=== PATIENT | female | born 1965 | race African-American/Black ===

== ENCOUNTER 2018-12-08 01:40 | Inpatient (IN) | payer MEDICAID ==
[2018-12-08] VITALS (46 sets, daily range): BP systolic 64–182; BP diastolic 34–96
[~2018-12-08] VITALS: Ht 160 cm; Wt 86.6 kg
[2018-12-08] MEDS ORDERED: SODIUM CHLORIDE 0.9% 1,000 ML IV ONE (03:09)
[2018-12-08] MEDS ORDERED: ONDANSETRON HCL 4MG/2ML INJ IV STA (03:09)
[2018-12-08] MEDS ORDERED: LORAZEPAM 2MG/ML CPJ IV ONE (03:15)
[2018-12-08 04:08] LABS: CHLORIDE 107 mEq/L (98-107)
[2018-12-08 04:12] LABS: ETHANOL BLOOD < 10 mg/dL; HEMATOCRIT. 30.6 % (36.0-48.0); MEAN CORPUSCULAR HEMOGLOBIN 29.2 pg (28.0-32.0); MEAN CORPUSCULAR VOLUME 89.5 fL (81.0-99.0); MEAN PLATELET VOLUME 11.1 fl (7.4-10.4); PLATELET 80 x1000/uL (130-400); RED BLOOD CELL COUNT 3.42 mill/uL (4.2-5.4); RED CELL DISTRIBUTION WIDTH 16.7 % (11.6-14.6)
[2018-12-08 04:17] LABS: CREATINE KINASE 108 IU/L (26-192); INR 1.9; PROTHROMBIN TIME 18.6 sec (9.1-11.1)
[2018-12-08 05:18] LABS: CLARITY URINE CLOUDY (CLEAR); COLOR URINE DARK YELLOW (YELLOW); KETONES URINE NEGATIVE (NEGATIVE); LEUKOCYTE ESTERASE URINE 2+ (NEGATIVE); NITRITE URINE NEGATIVE (NEGATIVE); OCCULT BLOOD URINE 2+ (NEGATIVE); PROTEIN URINE 1+ (NEGATIVE); SPECIFIC GRAVITY URINE 1.018 (1.005-1.030)
[2018-12-08 05:49] LABS: BG BASE EXCESS -3.2 mmol/L (-2.0-2.0); BG CARBOXYHEMOGLOBIN 0.7 % (0.5-1.5); BG DEOXYHEMOGLOBIN 15.3 % (0.0-5.0); BG FRACTION INSPIRED OXYGEN 21; BG HCO3 ACT 23.4 mmol/L (22.0-26.0); BG METHEMOGLOBIN 0.3 % (0.0-1.5); BG OXYGEN SATURATION 84.5 % (92.0-98.5); BG OXYHEMOGLOBIN 83.7 % (94.0-97.0); BG PCO2 48.7 mmHg (35.0-45.0); BG PH 7.299 (7.350-7.450); BG PO2 58.1 mmHg (75.0-100.0); BG SAMPLE SITE RIGHT RADIAL; BG TOTAL HEMOGLOBIN 11.3 g/dL (12.0-18.0); BG VENT MODE ROOM AIR
[2018-12-08] MEDS ORDERED: CEFTRIAXONE 1 G PREMIX 50 ML IV SCH (05:59)
[2018-12-08 06:10] LABS: *BARBITURATES SCREEN URINE NEGATIVE (NEGATIVE); *BENZODIAZEPINES SCREEN URINE NEGATIVE (NEGATIVE); *COCAINE SCREEN URINE NEGATIVE (NEGATIVE); CANNABINOID URINE SCREEN NEGATIVE (NEGATIVE); METHADONE URINE SCREEN NEGATIVE (NEGATIVE); OPIATES URINE SCREEN NEGATIVE (NEGATIVE)
[2018-12-08 06:11] LABS: *AMPHETAMINES SCREEN URINE NEGATIVE (NEGATIVE); PHENCYCLIDINE URINE SCREEN NEGATIVE (NEGATIVE)
[2018-12-08 07:09] LABS: PLATELET ESTIMATE DECREASED
[2018-12-08] MEDS ORDERED: SUCCINYLCHOLINE CHLORIDE 200MG/10ML IV ONE (10:30)
[2018-12-08] MEDS ORDERED: ETOMIDATE 2MG/ML 10ML VIAL IV ONE ×2 (10:30→14:05)
[2018-12-08] MEDS ORDERED: IPRATROPIUM/ALBUTEROL 0.5-3(2.5)MG/3ML NEB HHN PRN (10:30)
[2018-12-08] MEDS ORDERED: PROPOFOL 10MG/ML 100ML 100 ML IV ONE (11:00)
[2018-12-08 11:21] LABS: BG CARBOXYHEMOGLOBIN 0.6 % (0.5-1.5); BG DEOXYHEMOGLOBIN 0.5 % (0.0-5.0); BG FRACTION INSPIRED OXYGEN 80; BG HCO3 ACT 24.4 mmol/L (22.0-26.0); BG METHEMOGLOBIN 0.3 % (0.0-1.5); BG OXYGEN SATURATION 99.5 % (92.0-98.5); BG OXYHEMOGLOBIN 98.6 % (94.0-97.0); BG PCO2 48.5 mmHg (35.0-45.0); BG PH 7.319 (7.350-7.450); BG PO2 205.3 mmHg (75.0-100.0); BG SAMPLE SITE RIGHT RADIAL; BG TIDAL VOLUME(mL) 500 mL; BG VENT MODE VENT - A/C; BG VENT RATE 16 set
[2018-12-08] MEDS: IPRATROPIUM/ALBUTEROL 0.5-3(2.5)MG/3ML NEB HHN SCH ×3 (12:00→20:19)
[2018-12-08 13:04] LABS: FOLIC ACID (FOLATE) SERUM > 20.00 ng/mL (>5.38); VITAMIN B12 SERUM > 2000.0 pg/mL (211-911)
[2018-12-08] MEDS ORDERED: CEFEPIME 1,000 MG in DEXTROSE 5% WATER 50 ML IV SCH (14:00)
[2018-12-08] MEDS: METRONIDAZOLE 500 MG PREMIX 100 ML IV SCH ×3 (14:00→16:03)
[2018-12-08 14:07] LABS: FERRITIN 1090 ng/mL (10-291)
[2018-12-08 14:18] LABS: HEPATITIS B SURFACE ANTIGEN NEGATIVE
[2018-12-08] MEDS: PANTOPRAZOLE SODIUM 40 MG/VIAL IV SCH (14:25)
[2018-12-08] MEDS: PROPOFOL 10MG/ML 100ML 100 ML IV PRN ×2 (14:26→23:31)
[2018-12-08 14:48] LABS: HEPATITIS A AB IGM NEGATIVE (NEGATIVE)
[2018-12-08] MEDS ORDERED: SODIUM CHLORIDE 0.9% 250 ML IV NR (15:45)
[2018-12-08] MEDS ORDERED: DEXTROSE 5% WATER 1,000 ML IV SCH (16:00)
[2018-12-08] MEDS ORDERED: VANCOMYCIN 2,000 MG in DEXT 5% WATER 500 ML IV SCH (18:00)
[2018-12-08] MEDS ORDERED: INFLUENZA VIRUS VACCINE(AFLURIA) 0.5ML SYR IM ONE (18:15)
[2018-12-08] MEDS ORDERED: PNEUMOCOCCAL 23-VAL P-SAC VAC 0.5 ML IM ONE (18:15)
[2018-12-08] MEDS: THIAMINE HCL 100MG TABLET PO SCH (18:44)
[2018-12-08] MEDS: FOLIC ACID/VITAMIN B COMP W-C TABLET PO SCH (18:45)
[2018-12-08] MEDS: NOREPINEPHRINE 4 MG in DEXT 5% WATER 246 ML IV PRN (19:43)
[2018-12-09] VITALS (83 sets, daily range): BP systolic 74–140; BP diastolic 40–78
[2018-12-09] MEDS: IPRATROPIUM/ALBUTEROL 0.5-3(2.5)MG/3ML NEB HHN SCH ×6 (00:45→20:33)
[2018-12-09] MEDS: METRONIDAZOLE 500 MG PREMIX 100 ML IV SCH ×3 (05:08→21:57)
[2018-12-09] MEDS: NOREPINEPHRINE 4 MG in DEXT 5% WATER 246 ML IV PRN (06:32)
[2018-12-09 07:04] LABS: HEMATOCRIT. 27.3 % (36.0-48.0); MEAN CORPUSCULAR HEMOGLOBIN 29.6 pg (28.0-32.0); MEAN CORPUSCULAR VOLUME 89.2 fL (81.0-99.0); MEAN PLATELET VOLUME 10.7 fl (7.4-10.4); PLATELET 73 x1000/uL (130-400); RED BLOOD CELL COUNT 3.06 mill/uL (4.2-5.4); RED CELL DISTRIBUTION WIDTH 16.9 % (11.6-14.6)
[2018-12-09] MEDS ORDERED: CEFEPIME 2,000 MG in DEXT 5% WATER 100 ML IV SCH (08:00)
[2018-12-09 08:38] LABS: NUCLEATED RED BLOOD CELLS 1 /100 WBC
[2018-12-09 08:39] LABS: PLATELET ESTIMATE DECREASED
[2018-12-09 09:00] LABS: BG BASE EXCESS -2.3 mmol/L (-2.0-2.0); BG CARBOXYHEMOGLOBIN 0.1 % (0.5-1.5); BG DEOXYHEMOGLOBIN 0.9 % (0.0-5.0); BG FRACTION INSPIRED OXYGEN 50; BG HCO3 ACT 22.6 mmol/L (22.0-26.0); BG METHEMOGLOBIN 0.3 % (0.0-1.5); BG OXYGEN SATURATION 99.1 % (92.0-98.5); BG OXYHEMOGLOBIN 98.7 % (94.0-97.0); BG PCO2 39.2 mmHg (35.0-45.0); BG PH 7.379 (7.350-7.450); BG PO2 147.7 mmHg (75.0-100.0); BG SAMPLE SITE RIGHT RADIAL; BG TIDAL VOLUME(mL) 500 mL; BG TOTAL HEMOGLOBIN 9.5 g/dL (12.0-18.0); BG VENT MODE VENT - A/C; BG VENT RATE 16 set
[2018-12-09] MEDS: PANTOPRAZOLE SODIUM 40 MG/VIAL IV SCH (11:33)
[2018-12-09] MEDS: THIAMINE HCL 100MG TABLET PO SCH (11:34)
[2018-12-09] MEDS: FOLIC ACID/VITAMIN B COMP W-C TABLET PO SCH (11:34)
[2018-12-09] MEDS: DEXT 5%/0.45% NACL 1000ML 1,000 ML IV SCH (11:48)
[2018-12-09] MEDS ORDERED: VANCOMYCIN 1 G PREMIX 200 ML IV SCH ×2 (12:00)
[2018-12-09] MEDS: PROPOFOL 10MG/ML 100ML 100 ML IV PRN ×3 (12:18→21:54)
[2018-12-09] MEDS: MIDODRINE HCL 5MG TABLET PO SCH ×2 (13:42→17:54)
[2018-12-10] VITALS (32 sets, daily range): BP systolic 87–141; BP diastolic 44–103
[2018-12-10] MEDS: IPRATROPIUM/ALBUTEROL 0.5-3(2.5)MG/3ML NEB HHN SCH ×6 (00:12→20:22)
[2018-12-10] MEDS: METRONIDAZOLE 500 MG PREMIX 100 ML IV SCH ×2 (06:00→16:02)
[2018-12-10] MEDS: PROPOFOL 10MG/ML 100ML 100 ML IV PRN (06:47)
[2018-12-10] MEDS: DEXT 5%/0.45% NACL 1000ML 1,000 ML IV SCH ×2 (06:50→21:47)
[2018-12-10 06:51] LABS: BASOPHILS % 1.2 % (0.0-2.0); EOSINOPHILS % 1.6 % (0.0-5.0); HEMATOCRIT. 27.9 % (36.0-48.0); HEMOGLOBIN. 9.2 g/dL (12.0-16.0); MEAN CORPUSCULAR HEMOGLOBIN 29.2 pg (28.0-32.0); MEAN CORPUSCULAR VOLUME 88.6 fL (81.0-99.0); MEAN PLATELET VOLUME 10.6 fl (7.4-10.4); MONOCYTES % 6.7 % (2.0-8.0); NEUTROPHILS % 75.5 % (40.0-76.0); PLATELET 75 x1000/uL (130-400); RED BLOOD CELL COUNT 3.15 mill/uL (4.2-5.4); RED CELL DISTRIBUTION WIDTH 16.6 % (11.6-14.6)
[2018-12-10 06:59] LABS: CHLORIDE 106 mEq/L (98-107)
[2018-12-10 08:22] LABS: BG BASE EXCESS -2.1 mmol/L (-2.0-2.0); BG CARBOXYHEMOGLOBIN 0.5 % (0.5-1.5); BG DEOXYHEMOGLOBIN 2.2 % (0.0-5.0); BG FRACTION INSPIRED OXYGEN 50; BG HCO3 ACT 21.8 mmol/L (22.0-26.0); BG METHEMOGLOBIN 0.4 % (0.0-1.5); BG OXYGEN SATURATION 97.8 % (92.0-98.5); BG OXYHEMOGLOBIN 96.9 % (94.0-97.0); BG PCO2 33.9 mmHg (35.0-45.0); BG PH 7.426 (7.350-7.450); BG PO2 103.7 mmHg (75.0-100.0); BG SAMPLE SITE RIGHT BRACHIAL; BG TIDAL VOLUME(mL) 500 mL; BG TOTAL HEMOGLOBIN 9.2 g/dL (12.0-18.0); BG VENT MODE VENT - A/C; BG VENT RATE 16 set
[2018-12-10] MEDS: FOLIC ACID/VITAMIN B COMP W-C TABLET PO SCH (09:00)
[2018-12-10] MEDS: PANTOPRAZOLE SODIUM 40 MG/VIAL IV SCH (09:42)
[2018-12-10] MEDS: MIDODRINE HCL 5MG TABLET PO SCH ×3 (09:43→16:30)
[2018-12-10] MEDS: THIAMINE HCL 100MG TABLET PO SCH (09:43)
[2018-12-10] MEDS: CEFEPIME 2,000 MG in DEXT 5% WATER 100 ML IV SCH (09:50)
[2018-12-10] MEDS: PROPOFOL 10MG/ML 100ML 100 ML IV SCH (22:04)
[2018-12-11] VITALS (50 sets, daily range): BP systolic 76–125; BP diastolic 45–66
[2018-12-11] MEDS: IPRATROPIUM/ALBUTEROL 0.5-3(2.5)MG/3ML NEB HHN SCH ×6 (00:21→20:09)
[2018-12-11 05:58] LABS: BASOPHILS % 0.4 % (0.0-2.0); EOSINOPHILS % 0.3 % (0.0-5.0); HEMATOCRIT. 28.8 % (36.0-48.0); HEMOGLOBIN. 9.7 g/dL (12.0-16.0); LYMPHOCYTES % 15.2 % (20.0-50.0); MEAN CORPUSCULAR HEMOGLOBIN 29.7 pg (28.0-32.0); MEAN PLATELET VOLUME 11.1 fl (7.4-10.4); MONOCYTES % 3.2 % (2.0-8.0); NEUTROPHILS % 80.9 % (40.0-76.0); PLATELET 77 x1000/uL (130-400); RED BLOOD CELL COUNT 3.27 mill/uL (4.2-5.4); RED CELL DISTRIBUTION WIDTH 16.8 % (11.6-14.6)
[2018-12-11 06:08] LABS: INR 2.2; PARTIAL THROMBOPLASTIN TIME 41.3 sec (23.4-31.0); PROTHROMBIN TIME 21.9 sec (9.1-11.1)
[2018-12-11] MEDS: PROPOFOL 10MG/ML 100ML 100 ML IV SCH (06:42)
[2018-12-11] MEDS: METRONIDAZOLE 500 MG PREMIX 100 ML IV SCH ×4 (07:23→22:16)
[2018-12-11] MEDS: FOLIC ACID/VITAMIN B COMP W-C TABLET PO SCH (09:00)
[2018-12-11] MEDS: CEFEPIME 2,000 MG in DEXT 5% WATER 100 ML IV SCH (09:00)
[2018-12-11] MEDS: THIAMINE HCL 100MG TABLET PO SCH (09:00)
[2018-12-11] MEDS: MIDODRINE HCL 5MG TABLET PO SCH ×3 (09:00→17:00)
[2018-12-11 09:36] LABS: BG BASE EXCESS -4.3 mmol/L (-2.0-2.0); BG CARBOXYHEMOGLOBIN 0.3 % (0.5-1.5); BG DEOXYHEMOGLOBIN 8.8 % (0.0-5.0); BG FRACTION INSPIRED OXYGEN 50; BG HCO3 ACT 21.3 mmol/L (22.0-26.0); BG METHEMOGLOBIN 0.4 % (0.0-1.5); BG OXYGEN SATURATION 91.1 % (92.0-98.5); BG OXYHEMOGLOBIN 90.5 % (94.0-97.0); BG PCO2 41.2 mmHg (35.0-45.0); BG PH 7.331 (7.350-7.450); BG PO2 69.4 mmHg (75.0-100.0); BG PRESSURE SUPPORT 12; BG SAMPLE SITE RIGHT RADIAL; BG TIDAL VOLUME(mL) 500 mL; BG TOTAL HEMOGLOBIN 10.6 g/dL (12.0-18.0); BG VENT MODE VENT - SIMV; BG VENT RATE 10 set
[2018-12-11] MEDS: PANTOPRAZOLE SODIUM 40 MG/VIAL IV SCH (10:07)
[2018-12-11] MEDS ORDERED: FUROSEMIDE 40MG/4ML VIAL IVP NR (10:15)
[2018-12-11 13:06] LABS: HIV SCREEN 4G Non Reactive (Non Reactive)
[2018-12-11] MEDS: CEFTRIAXONE 2 G in DEXTROSE 5% WATER 50 ML IV SCH (18:27)
[2018-12-11] MEDS: PROPOFOL 10MG/ML 100ML 100 ML IV PRN (18:29)
[2018-12-11] MEDS: DEXT 5%/0.45% NACL 1000ML 1,000 ML IV SCH (22:16)
[2018-12-12] VITALS (89 sets, daily range): BP systolic 83–124; BP diastolic 44–70
[2018-12-12] MEDS: IPRATROPIUM/ALBUTEROL 0.5-3(2.5)MG/3ML NEB HHN SCH ×6 (00:31→21:03)
[2018-12-12] MEDS: NOREPINEPHRINE 4 MG in DEXT 5% WATER 246 ML IV PRN (01:06)
[2018-12-12] MEDS: METRONIDAZOLE 500 MG PREMIX 100 ML IV SCH ×4 (05:53→21:53)
[2018-12-12] MEDS: PROPOFOL 10MG/ML 100ML 100 ML IV PRN (05:56)
[2018-12-12 06:33] LABS: BASOPHILS % 0.6 % (0.0-2.0); EOSINOPHILS % 0.8 % (0.0-5.0); HEMATOCRIT. 29.3 % (36.0-48.0); HEMOGLOBIN. 9.5 g/dL (12.0-16.0); LYMPHOCYTES % 12.2 % (20.0-50.0); MEAN CORPUSCULAR VOLUME 89.3 fL (81.0-99.0); MEAN PLATELET VOLUME 10.8 fl (7.4-10.4); MONOCYTES % 3.9 % (2.0-8.0); NEUTROPHILS % 82.5 % (40.0-76.0); PLATELET 78 x1000/uL (130-400); RED BLOOD CELL COUNT 3.28 mill/uL (4.2-5.4); RED CELL DISTRIBUTION WIDTH 16.3 % (11.6-14.6)
[2018-12-12 08:18] LABS: BG BASE EXCESS -3.5 mmol/L (-2.0-2.0); BG CARBOXYHEMOGLOBIN 0.2 % (0.5-1.5); BG DEOXYHEMOGLOBIN 4.1 % (0.0-5.0); BG FRACTION INSPIRED OXYGEN 50; BG HCO3 ACT 21.1 mmol/L (22.0-26.0); BG METHEMOGLOBIN 0.2 % (0.0-1.5); BG OXYGEN SATURATION 95.9 % (92.0-98.5); BG OXYHEMOGLOBIN 95.5 % (94.0-97.0); BG PCO2 36.1 mmHg (35.0-45.0); BG PH 7.384 (7.350-7.450); BG PO2 89.5 mmHg (75.0-100.0); BG SAMPLE SITE RIGHT BRACHIAL; BG TIDAL VOLUME(mL) 500 mL; BG TOTAL HEMOGLOBIN 9.7 g/dL (12.0-18.0); BG VENT MODE VENT - A/C; BG VENT RATE 14 set
[2018-12-12] MEDS: FOLIC ACID/VITAMIN B COMP W-C TABLET PO SCH (08:33)
[2018-12-12] MEDS: THIAMINE HCL 100MG TABLET PO SCH (08:34)
[2018-12-12] MEDS: MIDODRINE HCL 5MG TABLET PO SCH ×3 (08:34→15:58)
[2018-12-12] MEDS ORDERED: PROPOFOL 10MG/ML 100ML 100 ML IV PRN (09:15)
[2018-12-12] MEDS: PANTOPRAZOLE SODIUM 40 MG/VIAL IV SCH (09:19)
[2018-12-12] MEDS: CEFTRIAXONE 2 G in DEXTROSE 5% WATER 50 ML IV SCH (17:27)
[2018-12-12] MEDS: ACETAMINOPHEN 325MG TABLET PO PRN (21:54)
[2018-12-13] VITALS (56 sets, daily range): BP systolic 86–139; BP diastolic 42–76
[2018-12-13] MEDS: IPRATROPIUM/ALBUTEROL 0.5-3(2.5)MG/3ML NEB HHN SCH ×6 (00:19→20:35)
[2018-12-13] MEDS: METRONIDAZOLE 500 MG PREMIX 100 ML IV SCH ×2 (05:15→17:02)
[2018-12-13 06:18] LABS: BASOPHILS % 0.6 % (0.0-2.0); EOSINOPHILS % 1.6 % (0.0-5.0); HEMATOCRIT. 26.9 % (36.0-48.0); LYMPHOCYTES % 11.4 % (20.0-50.0); MEAN CORPUSCULAR HEMOGLOBIN 29.7 pg (28.0-32.0); MEAN CORPUSCULAR VOLUME 88.5 fL (81.0-99.0); MEAN PLATELET VOLUME 10.9 fl (7.4-10.4); MONOCYTES % 4.9 % (2.0-8.0); NEUTROPHILS % 81.5 % (40.0-76.0); PLATELET 69 x1000/uL (130-400); RED BLOOD CELL COUNT 3.04 mill/uL (4.2-5.4); RED CELL DISTRIBUTION WIDTH 16.2 % (11.6-14.6)
[2018-12-13 06:37] LABS: PHOSPHORUS 7.9 mg/dL (2.5-4.9)
[2018-12-13] MEDS: DEXT 5%/0.45% NACL 1000ML 1,000 ML IV SCH (08:08)
[2018-12-13] MEDS: PANTOPRAZOLE SODIUM 40 MG/VIAL IV SCH (08:08)
[2018-12-13] MEDS: THIAMINE HCL 100MG TABLET PO SCH (08:08)
[2018-12-13] MEDS: FOLIC ACID/VITAMIN B COMP W-C TABLET PO SCH (08:08)
[2018-12-13] MEDS: MIDODRINE HCL 5MG TABLET PO SCH ×3 (08:09→17:01)
[2018-12-13 08:41] LABS: BG BASE EXCESS -5.4 mmol/L (-2.0-2.0); BG CARBOXYHEMOGLOBIN 0.1 % (0.5-1.5); BG DEOXYHEMOGLOBIN 3.3 % (0.0-5.0); BG FRACTION INSPIRED OXYGEN 50; BG HCO3 ACT 19.4 mmol/L (22.0-26.0); BG METHEMOGLOBIN 0.3 % (0.0-1.5); BG OXYGEN SATURATION 96.7 % (92.0-98.5); BG OXYHEMOGLOBIN 96.3 % (94.0-97.0); BG PCO2 35.3 mmHg (35.0-45.0); BG PH 7.359 (7.350-7.450); BG PO2 98.7 mmHg (75.0-100.0); BG SAMPLE SITE LEFT BRACHIAL; BG TIDAL VOLUME(mL) 500 mL; BG TOTAL HEMOGLOBIN 9.3 g/dL (12.0-18.0); BG VENT MODE VENT - A/C; BG VENT RATE 14 set
[2018-12-13] MEDS ORDERED: FUROSEMIDE 40MG/4ML VIAL IVP SCH (08:45)
[2018-12-13] MEDS ORDERED: LORAZEPAM 2MG/ML CPJ IV PRN (10:15)
[2018-12-13] MEDS ORDERED: FENTANYL CITRATE/PF 50MCG/ML 2ML VIAL IV PRN (10:15)
[2018-12-13] MEDS ORDERED: LACTULOSE 20G/30ML UDC PO SCH (11:15)
[2018-12-13] MEDS ORDERED: BISACODYL 5MG TABLET PO PRN (11:15)
[2018-12-13] MEDS: DOCUSATE SODIUM SUGAR FREE 100MG/10ML UDC NG SCH ×2 (11:58→17:01)
[2018-12-13 13:03] LABS: INR 2.5; PARTIAL THROMBOPLASTIN TIME 42.3 sec (23.4-31.0); PROTHROMBIN TIME 24.6 sec (9.1-11.1)
[2018-12-13] MEDS: CEFTRIAXONE 2 G in DEXTROSE 5% WATER 50 ML IV SCH (17:02)
[2018-12-14] VITALS (67 sets, daily range): BP systolic 90–134; BP diastolic 44–70
[2018-12-14] MEDS: IPRATROPIUM/ALBUTEROL 0.5-3(2.5)MG/3ML NEB HHN SCH ×6 (00:26→20:10)
[2018-12-14] MEDS: METRONIDAZOLE 500 MG PREMIX 100 ML IV SCH ×2 (05:01→18:17)
[2018-12-14 06:15] LABS: BASOPHILS % 0.7 % (0.0-2.0); EOSINOPHILS % 2.1 % (0.0-5.0); HEMATOCRIT. 28.5 % (36.0-48.0); HEMOGLOBIN. 9.4 g/dL (12.0-16.0); LYMPHOCYTES % 10.2 % (20.0-50.0); MEAN CORPUSCULAR HEMOGLOBIN 29.5 pg (28.0-32.0); MEAN CORPUSCULAR VOLUME 89.1 fL (81.0-99.0); MEAN PLATELET VOLUME 10.2 fl (7.4-10.4); MONOCYTES % 4.9 % (2.0-8.0); NEUTROPHILS % 82.1 % (40.0-76.0); PLATELET 66 x1000/uL (130-400); RED BLOOD CELL COUNT 3.19 mill/uL (4.2-5.4); RED CELL DISTRIBUTION WIDTH 16.1 % (11.6-14.6)
[2018-12-14 06:29] LABS: PHOSPHORUS 5.8 mg/dL (2.5-4.9)
[2018-12-14 08:53] LABS: BG BASE EXCESS -3.8 mmol/L (-2.0-2.0); BG CARBOXYHEMOGLOBIN 0.7 % (0.5-1.5); BG DEOXYHEMOGLOBIN 3.1 % (0.0-5.0); BG FRACTION INSPIRED OXYGEN 50; BG HCO3 ACT 21.3 mmol/L (22.0-26.0); BG METHEMOGLOBIN 0.3 % (0.0-1.5); BG OXYGEN SATURATION 96.9 % (92.0-98.5); BG OXYHEMOGLOBIN 95.9 % (94.0-97.0); BG PCO2 38.7 mmHg (35.0-45.0); BG PH 7.359 (7.350-7.450); BG PO2 100.4 mmHg (75.0-100.0); BG SAMPLE SITE RIGHT RADIAL; BG TIDAL VOLUME(mL) 500 mL; BG VENT MODE VENT - A/C; BG VENT RATE 14 set
[2018-12-14] MEDS: THIAMINE HCL 100MG TABLET PO SCH (09:00)
[2018-12-14] MEDS: DOCUSATE SODIUM SUGAR FREE 100MG/10ML UDC NG SCH ×2 (09:00→17:00)
[2018-12-14] MEDS: FOLIC ACID/VITAMIN B COMP W-C TABLET PO SCH (09:00)
[2018-12-14] MEDS: MIDODRINE HCL 5MG TABLET PO SCH ×3 (09:00→17:00)
[2018-12-14] MEDS: PANTOPRAZOLE SODIUM 40 MG/VIAL IV SCH (10:59)
[2018-12-14] MEDS: DEXT 5%/0.45% NACL 1000ML 1,000 ML IV SCH (12:08)
[2018-12-14] MEDS ORDERED: DIATR MEGLU/DIATRIZOATE SOLN 30ML PO NR ×2 (13:00→15:29)
[2018-12-14] MEDS: CEFTRIAXONE 2 G in DEXTROSE 5% WATER 50 ML IV SCH (18:18)
[2018-12-14] MEDS ORDERED: NA PHOS,M-B/NA PHOS,DI-BA ENEMA 118ML PR PRN (22:45)
[2018-12-14] MEDS: LACTULOSE 20G/30ML UDC PO PRN (22:54)
[2018-12-15] VITALS (32 sets, daily range): BP systolic 87–128; BP diastolic 40–65
[2018-12-15] MEDS: IPRATROPIUM/ALBUTEROL 0.5-3(2.5)MG/3ML NEB HHN SCH ×6 (00:12→20:29)
[2018-12-15] MEDS: METRONIDAZOLE 500 MG PREMIX 100 ML IV SCH ×2 (05:19→18:56)
[2018-12-15 07:45] LABS: BASOPHILS % 1.1 % (0.0-2.0); EOSINOPHILS % 1.9 % (0.0-5.0); HEMATOCRIT. 27.7 % (36.0-48.0); LYMPHOCYTES % 8.5 % (20.0-50.0); MEAN CORPUSCULAR HEMOGLOBIN 29.2 pg (28.0-32.0); MEAN CORPUSCULAR VOLUME 90.2 fL (81.0-99.0); MEAN PLATELET VOLUME 9.6 fl (7.4-10.4); MONOCYTES % 3.3 % (2.0-8.0); NEUTROPHILS % 85.2 % (40.0-76.0); PLATELET 74 x1000/uL (130-400); RED BLOOD CELL COUNT 3.07 mill/uL (4.2-5.4); RED CELL DISTRIBUTION WIDTH 16.3 % (11.6-14.6)
[2018-12-15] MEDS: DEXT 5%/0.45% NACL 1000ML 1,000 ML IV SCH ×2 (08:11→22:30)
[2018-12-15 08:51] LABS: BG BASE EXCESS -1.8 mmol/L (-2.0-2.0); BG CARBOXYHEMOGLOBIN 0.8 % (0.5-1.5); BG DEOXYHEMOGLOBIN 1.8 % (0.0-5.0); BG FRACTION INSPIRED OXYGEN 50; BG HCO3 ACT 22.9 mmol/L (22.0-26.0); BG METHEMOGLOBIN 0.5 % (0.0-1.5); BG OXYGEN SATURATION 98.2 % (92.0-98.5); BG OXYHEMOGLOBIN 96.9 % (94.0-97.0); BG PCO2 38.6 mmHg (35.0-45.0); BG PH 7.391 (7.350-7.450); BG PO2 126.3 mmHg (75.0-100.0); BG SAMPLE SITE RIGHT RADIAL; BG TIDAL VOLUME(mL) 500 mL; BG TOTAL HEMOGLOBIN 9.1 g/dL (12.0-18.0); BG VENT MODE VENT - A/C; BG VENT RATE 14 set
[2018-12-15] MEDS: DOCUSATE SODIUM SUGAR FREE 100MG/10ML UDC NG SCH ×2 (09:48→18:56)
[2018-12-15] MEDS: MIDODRINE HCL 5MG TABLET PO SCH ×3 (09:48→18:56)
[2018-12-15] MEDS: PANTOPRAZOLE SODIUM 40 MG/VIAL IV SCH (09:48)
[2018-12-15] MEDS: LACTULOSE 20G/30ML UDC PO PRN (09:48)
[2018-12-15] MEDS: THIAMINE HCL 100MG TABLET PO SCH (09:48)
[2018-12-15] MEDS: FOLIC ACID/VITAMIN B COMP W-C TABLET PO SCH (09:49)
[2018-12-15] MEDS ORDERED: LORAZEPAM 2MG/ML CPJ IV PRN (10:15)
[2018-12-15] MEDS: METOCLOPRAMIDE HCL 10MG/2ML VIAL IV SCH ×3 (13:34→22:29)
[2018-12-15] MEDS: CEFTRIAXONE 2 G in DEXTROSE 5% WATER 50 ML IV SCH (18:56)
[2018-12-16] VITALS (39 sets, daily range): BP systolic 92–130; BP diastolic 46–71
[2018-12-16] MEDS: IPRATROPIUM/ALBUTEROL 0.5-3(2.5)MG/3ML NEB HHN SCH ×6 (00:20→20:17)
[2018-12-16 05:37] LABS: HEMATOCRIT. 25.2 % (36.0-48.0); HEMOGLOBIN. 8.3 g/dL (12.0-16.0); MEAN CORPUSCULAR HEMOGLOBIN 29.9 pg (28.0-32.0); MEAN CORPUSCULAR VOLUME 90.8 fL (81.0-99.0); MEAN PLATELET VOLUME 10.3 fl (7.4-10.4); PLATELET 76 x1000/uL (130-400); RED BLOOD CELL COUNT 2.78 mill/uL (4.2-5.4); RED CELL DISTRIBUTION WIDTH 16.1 % (11.6-14.6)
[2018-12-16] MEDS: METOCLOPRAMIDE HCL 10MG/2ML VIAL IV SCH ×3 (06:37→17:31)
[2018-12-16] MEDS: METRONIDAZOLE 500 MG PREMIX 100 ML IV SCH ×2 (06:38→17:31)
[2018-12-16 08:07] LABS: BG BASE EXCESS -1.9 mmol/L (-2.0-2.0); BG CARBOXYHEMOGLOBIN 0.5 % (0.5-1.5); BG DEOXYHEMOGLOBIN 8.6 % (0.0-5.0); BG FRACTION INSPIRED OXYGEN 40; BG HCO3 ACT 22.4 mmol/L (22.0-26.0); BG METHEMOGLOBIN 0.3 % (0.0-1.5); BG OXYGEN SATURATION 91.3 % (92.0-98.5); BG OXYHEMOGLOBIN 90.6 % (94.0-97.0); BG PCO2 35.8 mmHg (35.0-45.0); BG PH 7.414 (7.350-7.450); BG PO2 64.8 mmHg (75.0-100.0); BG SAMPLE SITE LEFT RADIAL; BG TIDAL VOLUME(mL) 500 mL; BG VENT MODE VENT - A/C; BG VENT RATE 14 set
[2018-12-16] MEDS: DOCUSATE SODIUM SUGAR FREE 100MG/10ML UDC NG SCH ×2 (09:00→17:07)
[2018-12-16 09:48] LABS: PLATELET ESTIMATE DECREASED
[2018-12-16] MEDS: PANTOPRAZOLE SODIUM 40 MG/VIAL IV SCH (12:31)
[2018-12-16] MEDS: FOLIC ACID/VITAMIN B COMP W-C TABLET PO SCH (12:31)
[2018-12-16] MEDS: MIDODRINE HCL 5MG TABLET PO SCH ×3 (12:32→17:07)
[2018-12-16] MEDS: THIAMINE HCL 100MG TABLET PO SCH (12:32)
[2018-12-16] MEDS: CEFTRIAXONE 2 G in DEXTROSE 5% WATER 50 ML IV SCH (17:31)
[2018-12-17] VITALS (47 sets, daily range): BP systolic 76–139; BP diastolic 43–89
[2018-12-17] MEDS: METOCLOPRAMIDE HCL 10MG/2ML VIAL IV SCH ×4 (00:12→17:18)
[2018-12-17] MEDS: IPRATROPIUM/ALBUTEROL 0.5-3(2.5)MG/3ML NEB HHN SCH ×6 (01:03→20:28)
[2018-12-17] MEDS: DEXT 5%/0.45% NACL 1000ML 1,000 ML IV SCH (02:11)
[2018-12-17] MEDS: METRONIDAZOLE 500 MG PREMIX 100 ML IV SCH ×2 (05:11→17:16)
[2018-12-17 05:32] LABS: BASOPHILS % 0.4 % (0.0-2.0); HEMOGLOBIN. 8.8 g/dL (12.0-16.0); LYMPHOCYTES % 7.9 % (20.0-50.0); MEAN CORPUSCULAR HEMOGLOBIN 29.8 pg (28.0-32.0); MEAN CORPUSCULAR VOLUME 91.1 fL (81.0-99.0); MEAN PLATELET VOLUME 10.2 fl (7.4-10.4); MONOCYTES % 6.1 % (2.0-8.0); NEUTROPHILS % 83.6 % (40.0-76.0); PLATELET 88 x1000/uL (130-400); RED BLOOD CELL COUNT 2.96 mill/uL (4.2-5.4); RED CELL DISTRIBUTION WIDTH 16.3 % (11.6-14.6)
[2018-12-17 07:06] LABS: BG BASE EXCESS -1.2 mmol/L (-2.0-2.0); BG CARBOXYHEMOGLOBIN 0.5 % (0.5-1.5); BG DEOXYHEMOGLOBIN 6.1 % (0.0-5.0); BG HCO3 ACT 22.6 mmol/L (22.0-26.0); BG OXYGEN SATURATION 93.9 % (92.0-98.5); BG OXYHEMOGLOBIN 93.4 % (94.0-97.0); BG PCO2 33.9 mmHg (35.0-45.0); BG PH 7.441 (7.350-7.450); BG PO2 71.4 mmHg (75.0-100.0); BG SAMPLE SITE RIGHT RADIAL; BG TIDAL VOLUME(mL) 500 mL; BG TOTAL HEMOGLOBIN 9.2 g/dL (12.0-18.0); BG VENT MODE VENT - A/C; BG VENT RATE 14 set
[2018-12-17] MEDS: DOCUSATE SODIUM SUGAR FREE 100MG/10ML UDC NG SCH ×2 (09:00→17:16)
[2018-12-17] MEDS: FOLIC ACID/VITAMIN B COMP W-C TABLET PO SCH (10:10)
[2018-12-17] MEDS: THIAMINE HCL 100MG TABLET PO SCH (10:11)
[2018-12-17] MEDS: MIDODRINE HCL 5MG TABLET PO SCH ×3 (10:11→17:18)
[2018-12-17] MEDS: PANTOPRAZOLE SODIUM 40 MG/VIAL IV SCH (10:12)
[2018-12-17] MEDS: ACETAMINOPHEN 325MG TABLET PO PRN ×2 (10:12→17:19)
[2018-12-17 12:43] LABS: INR 2.7; PARTIAL THROMBOPLASTIN TIME 46.9 sec (23.4-31.0); PROTHROMBIN TIME 26.5 sec (9.1-11.1)
[2018-12-17 14:06] LABS: CLARITY URINE TURBID (CLEAR); COLOR URINE ORANGE (YELLOW); KETONES URINE NEGATIVE (NEGATIVE); LEUKOCYTE ESTERASE URINE 2+ (NEGATIVE); NITRITE URINE POSITIVE (NEGATIVE); OCCULT BLOOD URINE 2+ (NEGATIVE); PROTEIN URINE 1+ (NEGATIVE); SPECIFIC GRAVITY URINE 1.029 (1.005-1.030); UROBILINOGEN URINE 0.2 E.U./dL (0.2-1.0)
[2018-12-17] MEDS ORDERED: LIDOCAINE HCL/PF 1% 2ML VIAL ONE (15:26)
[2018-12-17] MEDS: CEFTRIAXONE 2 G in DEXTROSE 5% WATER 50 ML IV SCH (17:15)
[2018-12-17] MEDS ORDERED: VANCOMYCIN 1250MG in DEXTROSE 5% WATER 250ML IV SCH (18:30)
[2018-12-18] VITALS (90 sets, daily range): BP systolic 52–163; BP diastolic 26–125
[2018-12-18] MEDS: IPRATROPIUM/ALBUTEROL 0.5-3(2.5)MG/3ML NEB HHN SCH ×6 (00:10→20:25)
[2018-12-18] MEDS: METOCLOPRAMIDE HCL 10MG/2ML VIAL IV SCH ×4 (01:04→17:27)
[2018-12-18] MEDS: ACETAMINOPHEN 325MG TABLET PO PRN (03:59)
[2018-12-18 05:36] LABS: BASOPHILS % 0.9 % (0.0-2.0); EOSINOPHILS % 1.3 % (0.0-5.0); HEMATOCRIT. 25.4 % (36.0-48.0); HEMOGLOBIN. 8.4 g/dL (12.0-16.0); LYMPHOCYTES % 9.4 % (20.0-50.0); MEAN CORPUSCULAR HEMOGLOBIN 29.8 pg (28.0-32.0); MEAN CORPUSCULAR VOLUME 89.7 fL (81.0-99.0); MEAN PLATELET VOLUME 10.6 fl (7.4-10.4); MONOCYTES % 6.2 % (2.0-8.0); NEUTROPHILS % 82.2 % (40.0-76.0); PLATELET 112 x1000/uL (130-400); RED BLOOD CELL COUNT 2.83 mill/uL (4.2-5.4); RED CELL DISTRIBUTION WIDTH 16.5 % (11.6-14.6)
[2018-12-18] MEDS: METRONIDAZOLE 500 MG PREMIX 100 ML IV SCH ×2 (05:54→17:07)
[2018-12-18 08:18] LABS: BG BASE EXCESS -1.8 mmol/L (-2.0-2.0); BG CARBOXYHEMOGLOBIN 0.7 % (0.5-1.5); BG DEOXYHEMOGLOBIN 4.4 % (0.0-5.0); BG FRACTION INSPIRED OXYGEN 45; BG HCO3 ACT 21.9 mmol/L (22.0-26.0); BG METHEMOGLOBIN 0.5 % (0.0-1.5); BG OXYGEN SATURATION 95.5 % (92.0-98.5); BG OXYHEMOGLOBIN 94.4 % (94.0-97.0); BG PCO2 32.8 mmHg (35.0-45.0); BG PH 7.443 (7.350-7.450); BG PO2 79.1 mmHg (75.0-100.0); BG SAMPLE SITE RIGHT RADIAL; BG TIDAL VOLUME(mL) 500 mL; BG TOTAL HEMOGLOBIN 8.6 g/dL (12.0-18.0); BG VENT MODE VENT - A/C; BG VENT RATE 14 set
[2018-12-18] MEDS: MIDODRINE HCL 5MG TABLET PO SCH ×3 (09:00→17:27)
[2018-12-18] MEDS: FOLIC ACID/VITAMIN B COMP W-C TABLET PO SCH (09:03)
[2018-12-18] MEDS: PANTOPRAZOLE SODIUM 40 MG/VIAL IV SCH (09:03)
[2018-12-18] MEDS: DOCUSATE SODIUM SUGAR FREE 100MG/10ML UDC NG SCH ×2 (09:04→17:27)
[2018-12-18] MEDS: THIAMINE HCL 100MG TABLET PO SCH (09:04)
[2018-12-18] MEDS: NOREPINEPHRINE 4 MG in DEXT 5% WATER 246 ML IV PRN ×3 (10:33→19:07)
[2018-12-18] MEDS: CEFTRIAXONE 2 G in DEXTROSE 5% WATER 50 ML IV SCH (17:06)
[2018-12-18] MEDS ORDERED: LORAZEPAM 2MG/ML CPJ IV PRN (18:12)
[2018-12-19] VITALS (100 sets, daily range): BP systolic 81–169; BP diastolic 44–85
[2018-12-19] MEDS: IPRATROPIUM/ALBUTEROL 0.5-3(2.5)MG/3ML NEB HHN SCH ×6 (00:15→20:30)
[2018-12-19] MEDS: METOCLOPRAMIDE HCL 10MG/2ML VIAL IV SCH ×4 (00:36→17:54)
[2018-12-19 03:13] LABS: BASOPHILS % 0.7 % (0.0-2.0); EOSINOPHILS % 2.5 % (0.0-5.0); HEMATOCRIT. 23.7 % (36.0-48.0); LYMPHOCYTES % 9.7 % (20.0-50.0); MEAN CORPUSCULAR HEMOGLOBIN 30.3 pg (28.0-32.0); MEAN CORPUSCULAR VOLUME 90.4 fL (81.0-99.0); MEAN PLATELET VOLUME 10.1 fl (7.4-10.4); MONOCYTES % 7.5 % (2.0-8.0); NEUTROPHILS % 79.6 % (40.0-76.0); PLATELET 96 x1000/uL (130-400); RED BLOOD CELL COUNT 2.62 mill/uL (4.2-5.4); RED CELL DISTRIBUTION WIDTH 16.9 % (11.6-14.6)
[2018-12-19 03:23] LABS: INR 2.1; PARTIAL THROMBOPLASTIN TIME 35.7 sec (23.4-31.0); PROTHROMBIN TIME 21.1 sec (9.1-11.1)
[2018-12-19 03:29] LABS: CHLORIDE 102 mEq/L (98-107)
[2018-12-19] MEDS: METRONIDAZOLE 500 MG PREMIX 100 ML IV SCH ×2 (05:17→17:55)
[2018-12-19 07:53] LABS: BG CARBOXYHEMOGLOBIN 0.5 % (0.5-1.5); BG DEOXYHEMOGLOBIN 2.3 % (0.0-5.0); BG METHEMOGLOBIN 0.3 % (0.0-1.5); BG OXYGEN SATURATION 97.7 % (92.0-98.5); BG OXYHEMOGLOBIN 96.9 % (94.0-97.0); BG PCO2 37.2 mmHg (35.0-45.0); BG PH 7.446 (7.350-7.450); BG SAMPLE SITE RIGHT RADIAL; BG TIDAL VOLUME(mL) 500 mL; BG TOTAL HEMOGLOBIN 7.9 g/dL (12.0-18.0); BG VENT MODE VENT - A/C; BG VENT RATE 14 set
[2018-12-19] MEDS: NOREPINEPHRINE 4 MG in DEXT 5% WATER 246 ML IV PRN (08:09)
[2018-12-19] MEDS: PANTOPRAZOLE SODIUM 40 MG/VIAL IV SCH (08:19)
[2018-12-19] MEDS: THIAMINE HCL 100MG TABLET PO SCH (08:19)
[2018-12-19] MEDS: FOLIC ACID/VITAMIN B COMP W-C TABLET PO SCH (08:19)
[2018-12-19] MEDS: MIDODRINE HCL 5MG TABLET PO SCH ×3 (08:19→16:13)
[2018-12-19] MEDS: DOCUSATE SODIUM SUGAR FREE 100MG/10ML UDC NG SCH ×2 (08:19→16:13)
[2018-12-19] MEDS: MORPHINE SULFATE 4 MG/ML CPJ (NOT FOR IM USE) IV PRN (09:20)
[2018-12-19 12:16] LABS: INR 1.8
[2018-12-19] MEDS ORDERED: VECURONIUM BROMIDE 10 MG/VIAL IV ONE (16:56)
[2018-12-19] MEDS ORDERED: MIDAZOLAM HCL 2 MG/2 ML VIAL ONE (16:56)
[2018-12-19] MEDS ORDERED: CEFAZOLIN SODIUM 1000MG/VIAL ONE (17:14)
[2018-12-19] MEDS: CEFTRIAXONE 2 G in DEXTROSE 5% WATER 50 ML IV SCH (17:54)
[2018-12-19] MEDS ORDERED: VANCOMYCIN 1 G PREMIX 200 ML IV SCH (21:00)
[2018-12-20] VITALS (83 sets, daily range): BP systolic 92–161; BP diastolic 50–88
[2018-12-20] MEDS: IPRATROPIUM/ALBUTEROL 0.5-3(2.5)MG/3ML NEB HHN SCH ×7 (00:26→23:58)
[2018-12-20] MEDS: METOCLOPRAMIDE HCL 10MG/2ML VIAL IV SCH ×4 (00:28→16:35)
[2018-12-20] MEDS: NOREPINEPHRINE 4 MG in DEXT 5% WATER 246 ML IV PRN (05:36)
[2018-12-20 06:12] LABS: HEMATOCRIT. 21.7 % (36.0-48.0); HEMOGLOBIN. 7.2 g/dL (12.0-16.0); MEAN CORPUSCULAR HEMOGLOBIN 30.2 pg (28.0-32.0); MEAN CORPUSCULAR VOLUME 91.6 fL (81.0-99.0); PLATELET 111 x1000/uL (130-400); RED BLOOD CELL COUNT 2.36 mill/uL (4.2-5.4)
[2018-12-20 06:15] LABS: INR 1.7; PROTHROMBIN TIME 17.4 sec (9.1-11.1)
[2018-12-20] MEDS: METRONIDAZOLE 500 MG PREMIX 100 ML IV SCH ×2 (06:52→17:11)
[2018-12-20] MEDS: PANTOPRAZOLE SODIUM 40 MG/VIAL IV SCH (08:15)
[2018-12-20] MEDS: THIAMINE HCL 100MG TABLET PO SCH (08:15)
[2018-12-20] MEDS: MIDODRINE HCL 5MG TABLET PO SCH ×3 (08:15→16:36)
[2018-12-20] MEDS: DOCUSATE SODIUM SUGAR FREE 100MG/10ML UDC NG SCH ×2 (08:15→16:39)
[2018-12-20] MEDS: FOLIC ACID/VITAMIN B COMP W-C TABLET PO SCH (08:16)
[2018-12-20] MEDS ORDERED: PHYTONADIONE 10 MG in DEXTROSE 5% WATER 49 ML IV ONE (08:45)
[2018-12-20] MEDS ORDERED: DEXT 5%/0.9% NACL 1,000 ML IV ONE (08:45)
[2018-12-20 08:49] LABS: BG BASE EXCESS 1.6 mmol/L (-2.0-2.0); BG CARBOXYHEMOGLOBIN 0.7 % (0.5-1.5); BG FRACTION INSPIRED OXYGEN 45; BG HCO3 ACT 26.4 mmol/L (22.0-26.0); BG METHEMOGLOBIN 0.3 % (0.0-1.5); BG PCO2 42.8 mmHg (35.0-45.0); BG PH 7.408 (7.350-7.450); BG PO2 84.7 mmHg (75.0-100.0); BG SAMPLE SITE LEFT RADIAL; BG TIDAL VOLUME(mL) 500 mL; BG TOTAL HEMOGLOBIN 7.9 g/dL (12.0-18.0); BG VENT MODE VENT - A/C; BG VENT RATE 14 set
[2018-12-20] MEDS ORDERED: SODIUM CHLORIDE 0.9% IV NR (09:30)
[2018-12-20] MEDS ORDERED: PHYTONADIONE IV NR ×2 (09:30→16:30)
[2018-12-20 11:38] LABS: NUCLEATED RED BLOOD CELLS 1 /100 WBC
[2018-12-20 11:39] LABS: PLATELET ESTIMATE SLIGHTLY DECREASED
[2018-12-20 14:34] LABS: HEMATOCRIT 28.2 % (36.0-48.0); HEMOGLOBIN 9.4 g/dL (12.0-16.0)
[2018-12-20 14:40] LABS: PROTHROMBIN TIME 19.8 sec (9.1-11.1)
[2018-12-20] MEDS ORDERED: WATER IV NR (16:30)
[2018-12-20] MEDS ORDERED: DEXTROSE 5% IV NR (16:30)
[2018-12-20] MEDS: CEFTRIAXONE 2 G in DEXTROSE 5% WATER 50 ML IV SCH (17:11)
[2018-12-21] VITALS (77 sets, daily range): BP systolic 90–174; BP diastolic 55–101
[2018-12-21] MEDS: METOCLOPRAMIDE HCL 10MG/2ML VIAL IV SCH ×5 (00:24→23:27)
[2018-12-21] MEDS: MORPHINE SULFATE 4 MG/ML CPJ (NOT FOR IM USE) IV PRN ×3 (00:25→23:18)
[2018-12-21] MEDS: IPRATROPIUM/ALBUTEROL 0.5-3(2.5)MG/3ML NEB HHN SCH ×5 (04:02→19:50)
[2018-12-21 05:18] LABS: BASOPHILS % 1.2 % (0.0-2.0); EOSINOPHILS % 2.2 % (0.0-5.0); HEMATOCRIT. 27.9 % (36.0-48.0); HEMOGLOBIN. 9.3 g/dL (12.0-16.0); LYMPHOCYTES % 11.6 % (20.0-50.0); MEAN CORPUSCULAR HEMOGLOBIN 29.7 pg (28.0-32.0); MEAN CORPUSCULAR VOLUME 89.4 fL (81.0-99.0); MEAN PLATELET VOLUME 10.1 fl (7.4-10.4); MONOCYTES % 8.9 % (2.0-8.0); NEUTROPHILS % 76.1 % (40.0-76.0); PLATELET 114 x1000/uL (130-400); RED BLOOD CELL COUNT 3.12 mill/uL (4.2-5.4); RED CELL DISTRIBUTION WIDTH 16.9 % (11.6-14.6)
[2018-12-21 05:27] LABS: INR 2.1; PROTHROMBIN TIME 20.8 sec (9.1-11.1)
[2018-12-21] MEDS: METRONIDAZOLE 500 MG PREMIX 100 ML IV SCH ×2 (05:43→17:30)
[2018-12-21] MEDS ORDERED: DEXT 5%/0.9% NACL 1,000 ML IV ONE (07:00)
[2018-12-21] MEDS ORDERED: SODIUM CHLORIDE 0.9% IV NR ×2 (07:30→08:00)
[2018-12-21] MEDS ORDERED: PHYTONADIONE IV NR ×2 (07:30→08:00)
[2018-12-21] MEDS: DOCUSATE SODIUM SUGAR FREE 100MG/10ML UDC NG SCH ×2 (09:00→17:00)
[2018-12-21] MEDS: MIDODRINE HCL 5MG TABLET PO SCH ×3 (09:00→17:00)
[2018-12-21] MEDS: THIAMINE HCL 100MG TABLET PO SCH (09:00)
[2018-12-21] MEDS: FOLIC ACID/VITAMIN B COMP W-C TABLET PO SCH (09:00)
[2018-12-21] MEDS: PANTOPRAZOLE SODIUM 40 MG/VIAL IV SCH (09:37)
[2018-12-21 11:21] LABS: INR 1.9; PROTHROMBIN TIME 18.8 sec (9.1-11.1)
[2018-12-21] MEDS: CEFTRIAXONE 2 G in DEXTROSE 5% WATER 50 ML IV SCH (17:30)
[2018-12-22] VITALS (65 sets, daily range): BP systolic 96–180; BP diastolic 57–113
[2018-12-22] MEDS: IPRATROPIUM/ALBUTEROL 0.5-3(2.5)MG/3ML NEB HHN SCH ×6 (00:14→20:16)
[2018-12-22 00:31] LABS: INR 2.2; PROTHROMBIN TIME 21.6 sec (9.1-11.1)
[2018-12-22] MEDS ORDERED: PHYTONADIONE 10 MG in DEXTROSE 5% WATER 49 ML IV SCH (04:00)
[2018-12-22 05:32] LABS: BASOPHILS % 0.8 % (0.0-2.0); EOSINOPHILS % 1.2 % (0.0-5.0); HEMOGLOBIN. 9.3 g/dL (12.0-16.0); LYMPHOCYTES % 10.1 % (20.0-50.0); MEAN CORPUSCULAR VOLUME 90.8 fL (81.0-99.0); MEAN PLATELET VOLUME 9.8 fl (7.4-10.4); MONOCYTES % 10.9 % (2.0-8.0); PLATELET 117 x1000/uL (130-400); RED BLOOD CELL COUNT 3.08 mill/uL (4.2-5.4); RED CELL DISTRIBUTION WIDTH 17.7 % (11.6-14.6)
[2018-12-22 05:36] LABS: INR 2.2
[2018-12-22] MEDS: METRONIDAZOLE 500 MG PREMIX 100 ML IV SCH ×2 (06:31→18:00)
[2018-12-22] MEDS: METOCLOPRAMIDE HCL 10MG/2ML VIAL IV SCH ×3 (06:32→18:00)
[2018-12-22] MEDS: BLOOD SUGAR DIAGNOSTIC STRIP TEST SCH ×3 (06:32→17:32)
[2018-12-22 08:05] LABS: BG BASE EXCESS 0.5 mmol/L (-2.0-2.0); BG CARBOXYHEMOGLOBIN 0.9 % (0.5-1.5); BG DEOXYHEMOGLOBIN 7.2 % (0.0-5.0); BG FRACTION INSPIRED OXYGEN 40; BG HCO3 ACT 25.2 mmol/L (22.0-26.0); BG METHEMOGLOBIN 0.2 % (0.0-1.5); BG OXYGEN SATURATION 92.7 % (92.0-98.5); BG OXYHEMOGLOBIN 91.7 % (94.0-97.0); BG PCO2 41.2 mmHg (35.0-45.0); BG PH 7.405 (7.350-7.450); BG SAMPLE SITE LEFT RADIAL; BG TIDAL VOLUME(mL) 500 mL; BG TOTAL HEMOGLOBIN 10.2 g/dL (12.0-18.0); BG VENT MODE VENT - A/C; BG VENT RATE 12 set
[2018-12-22] MEDS: FOLIC ACID/VITAMIN B COMP W-C TABLET PO SCH (09:00)
[2018-12-22] MEDS: THIAMINE HCL 100MG TABLET PO SCH (09:00)
[2018-12-22] MEDS: MIDODRINE HCL 5MG TABLET PO SCH ×3 (09:00→17:00)
[2018-12-22] MEDS: DOCUSATE SODIUM SUGAR FREE 100MG/10ML UDC NG SCH ×2 (09:00→17:00)
[2018-12-22] MEDS: PANTOPRAZOLE SODIUM 40 MG/VIAL IV SCH (09:45)
[2018-12-22] MEDS ORDERED: CEFTRIAXONE 2 G PREMIX 50 ML IV SCH (12:00)
[2018-12-22] MEDS: CEFTRIAXONE 2 G in DEXTROSE 5% WATER 50 ML IV SCH (14:09)
[2018-12-22 14:52] LABS: PROTHROMBIN TIME 20.2 sec (9.1-11.1)
[2018-12-22] MEDS: LACTULOSE 20G/30ML UDC PO PRN (23:34)
[2018-12-23] VITALS (37 sets, daily range): BP systolic 92–175; BP diastolic 56–112
[2018-12-23] MEDS: METOCLOPRAMIDE HCL 10MG/2ML VIAL IV SCH ×5 (00:16→23:52)
[2018-12-23] MEDS: ACETAMINOPHEN 325MG TABLET PO PRN (00:17)
[2018-12-23] MEDS: METRONIDAZOLE 500 MG PREMIX 100 ML IV SCH ×3 (00:19→23:52)
[2018-12-23] MEDS: IPRATROPIUM/ALBUTEROL 0.5-3(2.5)MG/3ML NEB HHN SCH ×6 (00:22→20:17)
[2018-12-23] MEDS: BLOOD SUGAR DIAGNOSTIC STRIP TEST SCH ×2 (06:22)
[2018-12-23 06:43] LABS: BASOPHILS % 0.5 % (0.0-2.0); EOSINOPHILS % 2.6 % (0.0-5.0); HEMATOCRIT. 28.4 % (36.0-48.0); HEMOGLOBIN. 9.4 g/dL (12.0-16.0); LYMPHOCYTES % 8.8 % (20.0-50.0); MEAN CORPUSCULAR HEMOGLOBIN 30.1 pg (28.0-32.0); MEAN CORPUSCULAR VOLUME 90.8 fL (81.0-99.0); MEAN PLATELET VOLUME 9.8 fl (7.4-10.4); MONOCYTES % 11.3 % (2.0-8.0); NEUTROPHILS % 76.8 % (40.0-76.0); PLATELET 111 x1000/uL (130-400); RED BLOOD CELL COUNT 3.13 mill/uL (4.2-5.4); RED CELL DISTRIBUTION WIDTH 18.3 % (11.6-14.6)
[2018-12-23] MEDS: THIAMINE HCL 100MG TABLET PO SCH (10:00)
[2018-12-23] MEDS: FOLIC ACID/VITAMIN B COMP W-C TABLET PO SCH (10:00)
[2018-12-23] MEDS: DOCUSATE SODIUM SUGAR FREE 100MG/10ML UDC NG SCH ×2 (10:00→17:42)
[2018-12-23] MEDS: PANTOPRAZOLE SODIUM 40 MG/VIAL IV SCH (10:00)
[2018-12-23] MEDS: MIDODRINE HCL 5MG TABLET PO SCH ×3 (10:06→17:43)
[2018-12-23 11:16] LABS: INR 2.3; PROTHROMBIN TIME 22.9 sec (9.1-11.1)
[2018-12-23 13:01] LABS: BG BASE EXCESS 0.8 mmol/L (-2.0-2.0); BG CARBOXYHEMOGLOBIN 0.7 % (0.5-1.5); BG DEOXYHEMOGLOBIN 5.2 % (0.0-5.0); BG FRACTION INSPIRED OXYGEN 40; BG HCO3 ACT 25.8 mmol/L (22.0-26.0); BG METHEMOGLOBIN 0.3 % (0.0-1.5); BG OXYGEN SATURATION 94.7 % (92.0-98.5); BG OXYHEMOGLOBIN 93.8 % (94.0-97.0); BG PCO2 43.1 mmHg (35.0-45.0); BG PH 7.395 (7.350-7.450); BG PO2 77.2 mmHg (75.0-100.0); BG SAMPLE SITE RIGHT RADIAL; BG TIDAL VOLUME(mL) 500 mL; BG TOTAL HEMOGLOBIN 10.6 g/dL (12.0-18.0); BG VENT MODE VENT - A/C; BG VENT RATE 12 set
[2018-12-23] MEDS: CEFTRIAXONE 2 G in DEXTROSE 5% WATER 50 ML IV SCH (14:18)
[2018-12-23] MEDS: LACTULOSE 20G/30ML UDC PO PRN (17:42)
[2018-12-24] VITALS (24 sets, daily range): BP systolic 98–166; BP diastolic 59–100
[2018-12-24] MEDS: IPRATROPIUM/ALBUTEROL 0.5-3(2.5)MG/3ML NEB HHN SCH ×5 (00:30→16:59)
[2018-12-24] MEDS: METOCLOPRAMIDE HCL 10MG/2ML VIAL IV SCH ×3 (06:07→17:32)
[2018-12-24 07:47] LABS: INR 2.5; PARTIAL THROMBOPLASTIN TIME 38.1 sec (23.4-31.0); PROTHROMBIN TIME 24.6 sec (9.1-11.1)
[2018-12-24 08:22] LABS: BASOPHILS % 1.8 % (0.0-2.0); EOSINOPHILS % 4.4 % (0.0-5.0); HEMATOCRIT. 29.4 % (36.0-48.0); HEMOGLOBIN. 9.8 g/dL (12.0-16.0); LYMPHOCYTES % 11.2 % (20.0-50.0); MEAN CORPUSCULAR HEMOGLOBIN 30.5 pg (28.0-32.0); MEAN CORPUSCULAR VOLUME 91.6 fL (81.0-99.0); MEAN PLATELET VOLUME 9.5 fl (7.4-10.4); MONOCYTES % 13.7 % (2.0-8.0); NEUTROPHILS % 68.9 % (40.0-76.0); PLATELET 113 x1000/uL (130-400); RED BLOOD CELL COUNT 3.21 mill/uL (4.2-5.4); RED CELL DISTRIBUTION WIDTH 19.3 % (11.6-14.6)
[2018-12-24] MEDS: THIAMINE HCL 100MG TABLET PO SCH (09:04)
[2018-12-24] MEDS: DOCUSATE SODIUM SUGAR FREE 100MG/10ML UDC NG SCH ×2 (09:04→17:00)
[2018-12-24] MEDS: FOLIC ACID/VITAMIN B COMP W-C TABLET PO SCH (09:04)
[2018-12-24] MEDS: PANTOPRAZOLE SODIUM 40 MG/VIAL IV SCH (09:04)
[2018-12-24] MEDS: MIDODRINE HCL 5MG TABLET PO SCH ×3 (09:05→17:32)
[2018-12-24] MEDS: METRONIDAZOLE 500 MG PREMIX 100 ML IV SCH (13:06)
[2018-12-24] MEDS: CEFTRIAXONE 2 G in DEXTROSE 5% WATER 50 ML IV SCH (14:16)
[2018-12-24 20:27] LABS: D-DIMER 32.72 mg/L FEU (<0.50)
[2018-12-25] VITALS (21 sets, daily range): BP systolic 108–162; BP diastolic 70–99
[2018-12-25] MEDS: IPRATROPIUM/ALBUTEROL 0.5-3(2.5)MG/3ML NEB HHN SCH ×5 (00:14→20:09)
[2018-12-25] MEDS: METOCLOPRAMIDE HCL 10MG/2ML VIAL IV SCH ×4 (00:46→18:19)
[2018-12-25] MEDS: METRONIDAZOLE 500 MG PREMIX 100 ML IV SCH (00:46)
[2018-12-25 07:54] LABS: HEMATOCRIT. 29.6 % (36.0-48.0); HEMOGLOBIN. 9.7 g/dL (12.0-16.0); MEAN CORPUSCULAR HEMOGLOBIN 29.9 pg (28.0-32.0); MEAN CORPUSCULAR VOLUME 91.2 fL (81.0-99.0); MEAN PLATELET VOLUME 9.6 fl (7.4-10.4); PLATELET 106 x1000/uL (130-400); RED BLOOD CELL COUNT 3.25 mill/uL (4.2-5.4); RED CELL DISTRIBUTION WIDTH 19.4 % (11.6-14.6)
[2018-12-25 07:57] LABS: INR 2.6; PARTIAL THROMBOPLASTIN TIME 39.4 sec (23.4-31.0); PROTHROMBIN TIME 25.3 sec (9.1-11.1)
[2018-12-25 08:03] LABS: CHLORIDE 107 mEq/L (98-107)
[2018-12-25 08:10] LABS: PHOSPHORUS 4.4 mg/dL (2.5-4.9)
[2018-12-25] MEDS: DOCUSATE SODIUM SUGAR FREE 100MG/10ML UDC NG SCH ×2 (09:00→17:00)
[2018-12-25] MEDS: FOLIC ACID/VITAMIN B COMP W-C TABLET PO SCH (09:00)
[2018-12-25] MEDS: THIAMINE HCL 100MG TABLET PO SCH (09:00)
[2018-12-25] MEDS ORDERED: METOCLOPRAMIDE HCL 10MG/2ML VIAL IV SCH ×2 (09:30→13:00)
[2018-12-25] MEDS: PANTOPRAZOLE SODIUM 40 MG/VIAL IV SCH (09:53)
[2018-12-25] MEDS: ACETAMINOPHEN 325MG TABLET PO PRN (09:54)
[2018-12-25 10:00] LABS: BG BASE EXCESS 1.2 mmol/L (-2.0-2.0); BG CARBOXYHEMOGLOBIN 0.9 % (0.5-1.5); BG DEOXYHEMOGLOBIN 3.7 % (0.0-5.0); BG FRACTION INSPIRED OXYGEN 40; BG HCO3 ACT 25.2 mmol/L (22.0-26.0); BG METHEMOGLOBIN 0.3 % (0.0-1.5); BG OXYGEN SATURATION 96.3 % (92.0-98.5); BG OXYHEMOGLOBIN 95.1 % (94.0-97.0); BG PCO2 37.8 mmHg (35.0-45.0); BG PH 7.442 (7.350-7.450); BG PO2 84.3 mmHg (75.0-100.0); BG SAMPLE SITE RIGHT RADIAL; BG TIDAL VOLUME(mL) 500 mL; BG VENT MODE VENT - A/C; BG VENT RATE 12 set
[2018-12-25 11:27] LABS: NUCLEATED RED BLOOD CELLS 2 /100 WBC
[2018-12-25 11:28] LABS: PLATELET ESTIMATE DECREASED
[2018-12-25] MEDS: MIDODRINE HCL 5MG TABLET PO SCH ×3 (13:00→16:53)
[2018-12-25] MEDS ORDERED: MIDAZOLAM HCL 5 MG/5 ML VIAL ONE (14:32)
[2018-12-25] MEDS ORDERED: FENTANYL CITRATE/PF 50MCG/ML 2ML VIAL ONE (14:33)
[2018-12-25] MEDS: CEFTRIAXONE 2 G in DEXTROSE 5% WATER 50 ML IV SCH (14:40)
[2018-12-25] MEDS ORDERED: MIDAZOLAM HCL 2 MG/2 ML VIAL IV PRN (14:49)
[2018-12-25] MEDS ORDERED: SODIUM CHLORIDE 0.9% 10ML VIAL ONE (15:42)
[2018-12-25] MEDS ORDERED: SIMETHICONE 40 MG/0.6 ML 30ML ONE (15:43)
[2018-12-25] MEDS: ACETYLCYSTEINE 100MG/ML 10% VIAL 4ML INH SCH (16:57)
[2018-12-25] MEDS ORDERED: VANCOMYCIN 1500MG in DEXTROSE 5% WATER 250ML IV NR (23:00)
[2018-12-26] VITALS (12 sets, daily range): BP systolic 104–148; BP diastolic 58–90
[2018-12-26] MEDS: ACETYLCYSTEINE 100MG/ML 10% VIAL 4ML INH SCH ×3 (00:02→17:00)
[2018-12-26] MEDS: IPRATROPIUM/ALBUTEROL 0.5-3(2.5)MG/3ML NEB HHN SCH ×6 (00:02→20:23)
[2018-12-26 02:29] LABS: CLARITY URINE TURBID (CLEAR); KETONES URINE 1+ (NEGATIVE); LEUKOCYTE ESTERASE URINE 3+ (NEGATIVE); NITRITE URINE POSITIVE (NEGATIVE); OCCULT BLOOD URINE 3+ (NEGATIVE); PH URINE 5.5 (4.5-8.0); PROTEIN URINE 2+ (NEGATIVE); SPECIFIC GRAVITY URINE 1.026 (1.005-1.030)
[2018-12-26 02:32] LABS: COLOR URINE BROWN (YELLOW)
[2018-12-26] MEDS: METOCLOPRAMIDE HCL 10MG/2ML VIAL IV SCH ×5 (06:16→23:16)
[2018-12-26 08:24] LABS: HEMATOCRIT. 26.4 % (36.0-48.0); HEMOGLOBIN. 8.8 g/dL (12.0-16.0); MEAN CORPUSCULAR HEMOGLOBIN 30.1 pg (28.0-32.0); MEAN CORPUSCULAR VOLUME 90.4 fL (81.0-99.0); MEAN PLATELET VOLUME 10.2 fl (7.4-10.4); PLATELET 79 x1000/uL (130-400); RED BLOOD CELL COUNT 2.93 mill/uL (4.2-5.4); RED CELL DISTRIBUTION WIDTH 19.9 % (11.6-14.6)
[2018-12-26 09:00] LABS: INR 2.1; PROTHROMBIN TIME 21.3 sec (9.1-11.1)
[2018-12-26] MEDS: DOCUSATE SODIUM SUGAR FREE 100MG/10ML UDC NG SCH ×2 (10:22→18:06)
[2018-12-26] MEDS: THIAMINE HCL 100MG TABLET PO SCH (10:22)
[2018-12-26] MEDS: MIDODRINE HCL 5MG TABLET PO SCH ×3 (10:22→18:07)
[2018-12-26] MEDS: PANTOPRAZOLE SODIUM 40 MG/VIAL IV SCH (10:22)
[2018-12-26] MEDS: FOLIC ACID/VITAMIN B COMP W-C TABLET PO SCH (10:23)
[2018-12-26] MEDS: CEFTRIAXONE 2 G in DEXTROSE 5% WATER 50 ML IV SCH (14:32)
[2018-12-26 17:52] LABS: PLATELET ESTIMATE DECREASED
[2018-12-26] MEDS: NYSTATIN POWDER 15GM TOP SCH (23:16)
[2018-12-27] VITALS (12 sets, daily range): BP systolic 108–160; BP diastolic 55–92
[2018-12-27] MEDS: IPRATROPIUM/ALBUTEROL 0.5-3(2.5)MG/3ML NEB HHN SCH ×5 (01:08→20:43)
[2018-12-27] MEDS: ACETYLCYSTEINE 100MG/ML 10% VIAL 4ML INH SCH ×3 (01:08→15:44)
[2018-12-27] MEDS: METOCLOPRAMIDE HCL 10MG/2ML VIAL IV SCH ×3 (06:00→18:32)
[2018-12-27 07:10] LABS: HEMATOCRIT. 28.3 % (36.0-48.0); HEMOGLOBIN. 9.3 g/dL (12.0-16.0); MEAN CORPUSCULAR HEMOGLOBIN 30.1 pg (28.0-32.0); MEAN CORPUSCULAR VOLUME 91.7 fL (81.0-99.0); MEAN PLATELET VOLUME 10.5 fl (7.4-10.4); PLATELET 87 x1000/uL (130-400); RED BLOOD CELL COUNT 3.09 mill/uL (4.2-5.4); RED CELL DISTRIBUTION WIDTH 20.3 % (11.6-14.6)
[2018-12-27] MEDS: DOCUSATE SODIUM SUGAR FREE 100MG/10ML UDC NG SCH ×2 (08:51→18:32)
[2018-12-27] MEDS: PANTOPRAZOLE SODIUM 40 MG/VIAL IV SCH (08:51)
[2018-12-27] MEDS: NYSTATIN POWDER 15GM TOP SCH ×3 (08:52→18:33)
[2018-12-27] MEDS: MIDODRINE HCL 5MG TABLET PO SCH ×3 (08:52→18:32)
[2018-12-27] MEDS: THIAMINE HCL 100MG TABLET PO SCH (08:52)
[2018-12-27] MEDS: FOLIC ACID/VITAMIN B COMP W-C TABLET PO SCH (08:52)
[2018-12-27] MEDS ORDERED: LACTULOSE 20G/30ML UDC PO SCH (09:00)
[2018-12-27 11:49] LABS: ATYPICAL LYMPHOCYTES 1
[2018-12-27 11:50] LABS: PLATELET ESTIMATE DECREASED
[2018-12-27] MEDS: CEFTRIAXONE 2 G in DEXTROSE 5% WATER 50 ML IV SCH (13:50)
[2018-12-27] MEDS: ACETAMINOPHEN 325MG TABLET PO PRN (21:23)
[2018-12-28] VITALS (14 sets, daily range): BP systolic 84–137; BP diastolic 51–78
[2018-12-28] MEDS: IPRATROPIUM/ALBUTEROL 0.5-3(2.5)MG/3ML NEB HHN SCH ×6 (00:04→20:25)
[2018-12-28] MEDS: ACETYLCYSTEINE 100MG/ML 10% VIAL 4ML INH SCH ×4 (00:04→12:12)
[2018-12-28] MEDS: METOCLOPRAMIDE HCL 10MG/2ML VIAL IV SCH ×4 (01:29→17:32)
[2018-12-28] MEDS: ACETAMINOPHEN 325MG TABLET PO PRN (01:36)
[2018-12-28 08:28] LABS: HEMATOCRIT. 27.5 % (36.0-48.0); MEAN CORPUSCULAR HEMOGLOBIN 30.1 pg (28.0-32.0); MEAN CORPUSCULAR VOLUME 91.5 fL (81.0-99.0); MEAN PLATELET VOLUME 11.3 fl (7.4-10.4); PLATELET 88 x1000/uL (130-400); RED CELL DISTRIBUTION WIDTH 19.9 % (11.6-14.6)
[2018-12-28] MEDS: PANTOPRAZOLE SODIUM 40 MG/VIAL IV SCH (09:18)
[2018-12-28] MEDS: FOLIC ACID/VITAMIN B COMP W-C TABLET PO SCH (09:20)
[2018-12-28] MEDS: MIDODRINE HCL 5MG TABLET PO SCH ×3 (09:20→16:36)
[2018-12-28] MEDS: THIAMINE HCL 100MG TABLET PO SCH (09:20)
[2018-12-28] MEDS: ZINC SULFATE 220 MG ( 50 ) CAPSULE GT SCH (09:20)
[2018-12-28] MEDS: DOCUSATE SODIUM SUGAR FREE 100MG/10ML UDC NG SCH ×2 (09:21→16:36)
[2018-12-28] MEDS: ASCORBIC ACID 500 MG TABLET GT SCH (09:21)
[2018-12-28] MEDS: NYSTATIN POWDER 15GM TOP SCH ×3 (09:22→16:36)
[2018-12-28] MEDS ORDERED: VANCOMYCIN 1250MG in DEXTROSE 5% WATER 250ML IV NR (12:00)
[2018-12-28] MEDS: CEFTRIAXONE 2 G in DEXTROSE 5% WATER 50 ML IV SCH (14:25)
[2018-12-28 20:02] LABS: PLATELET ESTIMATE DECREASED
[2018-12-29] VITALS (12 sets, daily range): BP systolic 100–162; BP diastolic 55–98
[2018-12-29] MEDS: METOCLOPRAMIDE HCL 10MG/2ML VIAL IV SCH ×5 (00:04→23:10)
[2018-12-29] MEDS: ACETAMINOPHEN 325MG TABLET PO PRN (00:04)
[2018-12-29] MEDS: IPRATROPIUM/ALBUTEROL 0.5-3(2.5)MG/3ML NEB HHN SCH ×6 (00:59→20:06)
[2018-12-29] MEDS: ACETYLCYSTEINE 100MG/ML 10% VIAL 4ML INH SCH ×2 (06:00→14:00)
[2018-12-29 06:29] LABS: HEMATOCRIT. 28.4 % (36.0-48.0); HEMOGLOBIN. 9.3 g/dL (12.0-16.0); MEAN CORPUSCULAR HEMOGLOBIN 30.2 pg (28.0-32.0); MEAN CORPUSCULAR VOLUME 92.1 fL (81.0-99.0); MEAN PLATELET VOLUME 10.7 fl (7.4-10.4); PLATELET 89 x1000/uL (130-400); RED BLOOD CELL COUNT 3.08 mill/uL (4.2-5.4); RED CELL DISTRIBUTION WIDTH 20.2 % (11.6-14.6)
[2018-12-29] MEDS: ZINC SULFATE 220 MG ( 50 ) CAPSULE GT SCH (08:35)
[2018-12-29] MEDS: THIAMINE HCL 100MG TABLET PO SCH (08:35)
[2018-12-29] MEDS: DOCUSATE SODIUM SUGAR FREE 100MG/10ML UDC NG SCH ×2 (08:36→17:03)
[2018-12-29] MEDS: FOLIC ACID/VITAMIN B COMP W-C TABLET PO SCH (08:36)
[2018-12-29] MEDS: MIDODRINE HCL 5MG TABLET PO SCH ×3 (08:36→17:04)
[2018-12-29] MEDS: ASCORBIC ACID 500 MG TABLET GT SCH (08:36)
[2018-12-29] MEDS: PANTOPRAZOLE SODIUM 40 MG/VIAL IV SCH (08:36)
[2018-12-29] MEDS: NYSTATIN POWDER 15GM TOP SCH ×3 (08:52→17:04)
[2018-12-29] MEDS: CEFTRIAXONE 2 G in DEXTROSE 5% WATER 50 ML IV SCH ×2 (14:00→16:23)
[2018-12-29 14:11] LABS: PLATELET ESTIMATE DECREASED
[2018-12-30] VITALS (12 sets, daily range): BP systolic 110–137; BP diastolic 64–84
[2018-12-30] MEDS: IPRATROPIUM/ALBUTEROL 0.5-3(2.5)MG/3ML NEB HHN SCH ×6 (00:25→20:21)
[2018-12-30] MEDS: ACETYLCYSTEINE 100MG/ML 10% VIAL 4ML INH SCH ×2 (00:26→08:29)
[2018-12-30] MEDS: ACETAMINOPHEN 325MG TABLET PO PRN (01:04)
[2018-12-30] MEDS: METOCLOPRAMIDE HCL 10MG/2ML VIAL IV SCH ×2 (05:40→17:58)
[2018-12-30 07:29] LABS: HEMATOCRIT. 27.4 % (36.0-48.0); MEAN CORPUSCULAR HEMOGLOBIN 30.7 pg (28.0-32.0); MEAN CORPUSCULAR VOLUME 93.5 fL (81.0-99.0); MEAN PLATELET VOLUME 10.8 fl (7.4-10.4); PLATELET 79 x1000/uL (130-400); RED BLOOD CELL COUNT 2.93 mill/uL (4.2-5.4); RED CELL DISTRIBUTION WIDTH 20.2 % (11.6-14.6)
[2018-12-30] MEDS: PANTOPRAZOLE SODIUM 40 MG/VIAL IV SCH (09:49)
[2018-12-30] MEDS: ASCORBIC ACID 500 MG TABLET GT SCH (09:49)
[2018-12-30] MEDS: ZINC SULFATE 220 MG ( 50 ) CAPSULE GT SCH (09:50)
[2018-12-30] MEDS: DOCUSATE SODIUM SUGAR FREE 100MG/10ML UDC NG SCH ×2 (09:50→17:59)
[2018-12-30] MEDS: MIDODRINE HCL 5MG TABLET PO SCH ×2 (09:51→17:58)
[2018-12-30] MEDS: THIAMINE HCL 100MG TABLET PO SCH (09:51)
[2018-12-30] MEDS: FOLIC ACID/VITAMIN B COMP W-C TABLET PO SCH (09:52)
[2018-12-30] MEDS: NYSTATIN POWDER 15GM TOP SCH ×2 (09:52→17:59)
[2018-12-31] VITALS (13 sets, daily range): BP systolic 13–130; BP diastolic 59–78
[2018-12-31] MEDS: IPRATROPIUM/ALBUTEROL 0.5-3(2.5)MG/3ML NEB HHN SCH ×6 (00:44→21:24)
[2018-12-31] MEDS: METOCLOPRAMIDE HCL 10MG/2ML VIAL IV SCH ×4 (00:57→19:08)
[2018-12-31 08:59] LABS: HEMATOCRIT. 27.5 % (36.0-48.0); HEMOGLOBIN. 9.1 g/dL (12.0-16.0); MEAN CORPUSCULAR HEMOGLOBIN 30.3 pg (28.0-32.0); MEAN CORPUSCULAR VOLUME 91.9 fL (81.0-99.0); RED BLOOD CELL COUNT 2.99 mill/uL (4.2-5.4); RED CELL DISTRIBUTION WIDTH 19.9 % (11.6-14.6)
[2018-12-31] MEDS: FOLIC ACID/VITAMIN B COMP W-C TABLET PO SCH (09:28)
[2018-12-31] MEDS: DOCUSATE SODIUM SUGAR FREE 100MG/10ML UDC NG SCH ×2 (09:28→19:08)
[2018-12-31] MEDS: ONDANSETRON HCL 4MG/2ML INJ IV PRN (09:28)
[2018-12-31] MEDS: PANTOPRAZOLE SODIUM 40 MG/VIAL IV SCH (09:28)
[2018-12-31] MEDS: ASCORBIC ACID 500 MG TABLET GT SCH (09:29)
[2018-12-31] MEDS: MIDODRINE HCL 5MG TABLET PO SCH ×3 (09:29→19:08)
[2018-12-31] MEDS: ZINC SULFATE 220 MG ( 50 ) CAPSULE GT SCH (09:29)
[2018-12-31] MEDS: THIAMINE HCL 100MG TABLET PO SCH (09:29)
[2018-12-31 11:08] LABS: NUCLEATED RED BLOOD CELLS 1 /100 WBC
[2018-12-31 11:09] LABS: PLATELET ESTIMATE DECREASED
[2018-12-31] MEDS: NYSTATIN POWDER 15GM TOP SCH ×3 (13:00→19:09)
[2018-12-31 13:19] LABS: PLATELET 83 x1000/uL (130-400)
[2018-12-31 13:22] LABS: NUCLEATED RED BLOOD CELLS 1 /100 WBC
[2018-12-31 13:23] LABS: PLATELET ESTIMATE MARKEDLY DECREASED
[2019-01-01] VITALS (13 sets, daily range): BP systolic 13–138; BP diastolic 59–81
[2019-01-01] MEDS: IPRATROPIUM/ALBUTEROL 0.5-3(2.5)MG/3ML NEB HHN SCH ×6 (00:35→20:24)
[2019-01-01] MEDS: METOCLOPRAMIDE HCL 10MG/2ML VIAL IV SCH ×4 (00:43→18:45)
[2019-01-01 07:21] LABS: HEMATOCRIT. 26.1 % (36.0-48.0); HEMOGLOBIN. 8.5 g/dL (12.0-16.0); MEAN CORPUSCULAR HEMOGLOBIN 30.2 pg (28.0-32.0); MEAN CORPUSCULAR VOLUME 92.5 fL (81.0-99.0); MEAN PLATELET VOLUME 12.1 fl (7.4-10.4); PLATELET 95 x1000/uL (130-400); RED BLOOD CELL COUNT 2.82 mill/uL (4.2-5.4); RED CELL DISTRIBUTION WIDTH 20.1 % (11.6-14.6)
[2019-01-01] MEDS: ASCORBIC ACID 500 MG TABLET GT SCH (08:14)
[2019-01-01] MEDS: ZINC SULFATE 220 MG ( 50 ) CAPSULE GT SCH (08:14)
[2019-01-01] MEDS: FOLIC ACID/VITAMIN B COMP W-C TABLET PO SCH (08:14)
[2019-01-01] MEDS: DOCUSATE SODIUM SUGAR FREE 100MG/10ML UDC NG SCH ×2 (08:14→18:40)
[2019-01-01] MEDS: PANTOPRAZOLE SODIUM 40 MG/VIAL IV SCH (08:14)
[2019-01-01] MEDS: MIDODRINE HCL 5MG TABLET PO SCH ×3 (08:15→18:41)
[2019-01-01] MEDS: THIAMINE HCL 100MG TABLET PO SCH (08:15)
[2019-01-01] MEDS: NYSTATIN POWDER 15GM TOP SCH ×3 (08:15→17:00)
[2019-01-01] MEDS: ONDANSETRON HCL 4MG/2ML INJ IV PRN (08:15)
[2019-01-01] MEDS: ACETAMINOPHEN 325MG TABLET PO PRN (08:16)
[2019-01-01 13:06] LABS: PLATELET ESTIMATE DECREASED
[2019-01-01] MEDS: FLUCONAZOLE 200 MG/100ML BAG 100 ML IV SCH (18:58)
[2019-01-02] VITALS (14 sets, daily range): BP systolic 106–145; BP diastolic 60–81
[2019-01-02] MEDS: IPRATROPIUM/ALBUTEROL 0.5-3(2.5)MG/3ML NEB HHN SCH ×6 (00:08→21:14)
[2019-01-02] MEDS: METOCLOPRAMIDE HCL 10MG/2ML VIAL IV SCH ×4 (00:27→17:54)
[2019-01-02 06:32] LABS: HEMOGLOBIN. 8.9 g/dL (12.0-16.0); MEAN CORPUSCULAR HEMOGLOBIN 30.4 pg (28.0-32.0); MEAN CORPUSCULAR VOLUME 92.5 fL (81.0-99.0); RED BLOOD CELL COUNT 2.92 mill/uL (4.2-5.4); RED CELL DISTRIBUTION WIDTH 20.1 % (11.6-14.6)
[2019-01-02] MEDS: ASCORBIC ACID 500 MG TABLET GT SCH (09:21)
[2019-01-02] MEDS: PANTOPRAZOLE SODIUM 40 MG/VIAL IV SCH (09:21)
[2019-01-02] MEDS: DOCUSATE SODIUM SUGAR FREE 100MG/10ML UDC NG SCH ×2 (09:21→17:54)
[2019-01-02] MEDS: MIDODRINE HCL 5MG TABLET PO SCH ×3 (09:21→17:54)
[2019-01-02] MEDS: ZINC SULFATE 220 MG ( 50 ) CAPSULE GT SCH (09:21)
[2019-01-02] MEDS: THIAMINE HCL 100MG TABLET PO SCH (09:22)
[2019-01-02] MEDS: FOLIC ACID/VITAMIN B COMP W-C TABLET PO SCH (09:22)
[2019-01-02] MEDS: NYSTATIN POWDER 15GM TOP SCH ×3 (09:37→18:02)
[2019-01-02 09:43] LABS: PLATELET 87 x1000/uL (130-400)
[2019-01-02 09:47] LABS: PLATELET ESTIMATE DECREASED
[2019-01-02] MEDS: FLUCONAZOLE 200 MG/100ML BAG 100 ML IV SCH (17:55)
[2019-01-02 20:27] LABS: CLARITY URINE TURBID (CLEAR); COLOR URINE DARK YELLOW (YELLOW); KETONES URINE TRACE (NEGATIVE); LEUKOCYTE ESTERASE URINE 3+ (NEGATIVE); NITRITE URINE NEGATIVE (NEGATIVE); OCCULT BLOOD URINE 3+ (NEGATIVE); PH URINE 6.5 (4.5-8.0); PROTEIN URINE 2+ (NEGATIVE); SPECIFIC GRAVITY URINE 1.022 (1.005-1.030)
[2019-01-03] VITALS (12 sets, daily range): BP systolic 110–150; BP diastolic 65–90
[2019-01-03] MEDS: IPRATROPIUM/ALBUTEROL 0.5-3(2.5)MG/3ML NEB HHN SCH ×6 (00:15→20:32)
[2019-01-03] MEDS: METOCLOPRAMIDE HCL 10MG/2ML VIAL IV SCH ×5 (00:32→23:25)
[2019-01-03 07:11] LABS: BASOPHILS % 0.5 % (0.0-2.0); EOSINOPHILS % 1.3 % (0.0-5.0); HEMATOCRIT. 28.1 % (36.0-48.0); HEMOGLOBIN. 9.3 g/dL (12.0-16.0); LYMPHOCYTES % 13.9 % (20.0-50.0); MEAN CORPUSCULAR HEMOGLOBIN 30.7 pg (28.0-32.0); MEAN CORPUSCULAR VOLUME 92.5 fL (81.0-99.0); MONOCYTES % 14.2 % (2.0-8.0); NEUTROPHILS % 70.1 % (40.0-76.0); RED BLOOD CELL COUNT 3.03 mill/uL (4.2-5.4); RED CELL DISTRIBUTION WIDTH 19.9 % (11.6-14.6)
[2019-01-03 09:11] LABS: IMMUNOGLOBULIN A 538 mg/dL (87-352); IMMUNOGLOBULIN G 5740 mg/dL (700-1600); IMMUNOGLOBULIN M 134 mg/dL (26-217)
[2019-01-03] MEDS: THIAMINE HCL 100MG TABLET PO SCH (09:55)
[2019-01-03] MEDS: FOLIC ACID/VITAMIN B COMP W-C TABLET PO SCH (09:55)
[2019-01-03] MEDS: ZINC SULFATE 220 MG ( 50 ) CAPSULE GT SCH (09:55)
[2019-01-03] MEDS: ASCORBIC ACID 500 MG TABLET GT SCH (09:55)
[2019-01-03] MEDS: NYSTATIN POWDER 15GM TOP SCH ×4 (09:55→18:34)
[2019-01-03] MEDS: PANTOPRAZOLE SODIUM 40 MG/VIAL IV SCH (09:55)
[2019-01-03] MEDS: DOCUSATE SODIUM SUGAR FREE 100MG/10ML UDC NG SCH ×2 (10:02→17:17)
[2019-01-03] MEDS: MIDODRINE HCL 5MG TABLET PO SCH ×3 (10:02→17:19)
[2019-01-03 11:10] LABS: BG BASE EXCESS 7.7 mmol/L (-2.0-2.0); BG DEOXYHEMOGLOBIN 3.2 % (0.0-5.0); BG FRACTION INSPIRED OXYGEN 40; BG HCO3 ACT 32.2 mmol/L (22.0-26.0); BG METHEMOGLOBIN 0.1 % (0.0-1.5); BG OXYGEN SATURATION 96.8 % (92.0-98.5); BG OXYHEMOGLOBIN 95.7 % (94.0-97.0); BG PCO2 45.2 mmHg (35.0-45.0); BG PH 7.471 (7.350-7.450); BG PO2 86.3 mmHg (75.0-100.0); BG PRESSURE SUPPORT 14; BG SAMPLE SITE RIGHT RADIAL; BG TIDAL VOLUME(mL) 600 mL; BG TOTAL HEMOGLOBIN 9.6 g/dL (12.0-18.0); BG VENT MODE VENT - SIMV; BG VENT RATE 6 set
[2019-01-03 11:23] LABS: MEAN PLATELET VOLUME 11.1 fl (7.4-10.4); PLATELET 99 x1000/uL (130-400)
[2019-01-03] MEDS: FLUCONAZOLE 200 MG/100ML BAG 100 ML IV SCH (17:17)
[2019-01-04] VITALS (12 sets, daily range): BP systolic 121–161; BP diastolic 59–95
[2019-01-04] MEDS: IPRATROPIUM/ALBUTEROL 0.5-3(2.5)MG/3ML NEB HHN SCH ×6 (00:12→19:53)
[2019-01-04] MEDS: METOCLOPRAMIDE HCL 10MG/2ML VIAL IV SCH ×3 (06:00→18:43)
[2019-01-04 07:43] LABS: HEMATOCRIT. 25.7 % (36.0-48.0); HEMOGLOBIN. 8.5 g/dL (12.0-16.0); MEAN CORPUSCULAR HEMOGLOBIN 30.8 pg (28.0-32.0); MEAN CORPUSCULAR VOLUME 92.9 fL (81.0-99.0); MEAN PLATELET VOLUME 11.2 fl (7.4-10.4); PLATELET 103 x1000/uL (130-400); RED BLOOD CELL COUNT 2.76 mill/uL (4.2-5.4); RED CELL DISTRIBUTION WIDTH 19.7 % (11.6-14.6)
[2019-01-04] MEDS: ASCORBIC ACID 500 MG TABLET GT SCH (09:22)
[2019-01-04] MEDS: THIAMINE HCL 100MG TABLET PO SCH (09:22)
[2019-01-04] MEDS: PANTOPRAZOLE SODIUM 40 MG/VIAL IV SCH (09:22)
[2019-01-04] MEDS: FOLIC ACID/VITAMIN B COMP W-C TABLET PO SCH (09:22)
[2019-01-04] MEDS: DOCUSATE SODIUM SUGAR FREE 100MG/10ML UDC NG SCH ×2 (09:22→18:42)
[2019-01-04] MEDS: MIDODRINE HCL 5MG TABLET PO SCH ×3 (09:22→18:42)
[2019-01-04] MEDS: ZINC SULFATE 220 MG ( 50 ) CAPSULE GT SCH (09:22)
[2019-01-04] MEDS: NYSTATIN POWDER 15GM TOP SCH ×3 (09:28→18:44)
[2019-01-04 14:14] LABS: PLATELET ESTIMATE DECREASED
[2019-01-04] MEDS: FLUCONAZOLE 200 MG/100ML BAG 100 ML IV SCH (18:43)
[2019-01-05] VITALS (12 sets, daily range): BP systolic 114–157; BP diastolic 64–98
[2019-01-05] MEDS: IPRATROPIUM/ALBUTEROL 0.5-3(2.5)MG/3ML NEB HHN SCH ×4 (00:05→12:14)
[2019-01-05] MEDS: METOCLOPRAMIDE HCL 10MG/2ML VIAL IV SCH ×3 (00:27→18:29)
[2019-01-05] MEDS: ASCORBIC ACID 500 MG TABLET GT SCH (09:00)
[2019-01-05] MEDS: MIDODRINE HCL 5MG TABLET PO SCH ×4 (09:00→18:29)
[2019-01-05] MEDS: FOLIC ACID/VITAMIN B COMP W-C TABLET PO SCH (09:00)
[2019-01-05] MEDS: DOCUSATE SODIUM SUGAR FREE 100MG/10ML UDC NG SCH ×2 (09:00→18:29)
[2019-01-05] MEDS: PANTOPRAZOLE SODIUM 40 MG/VIAL IV SCH (10:05)
[2019-01-05] MEDS: ZINC SULFATE 220 MG ( 50 ) CAPSULE GT SCH (10:06)
[2019-01-05] MEDS: ACETAMINOPHEN 325MG TABLET PO PRN (10:06)
[2019-01-05] MEDS: FLUCONAZOLE 100MG TABLET PO SCH (10:06)
[2019-01-05] MEDS: NYSTATIN POWDER 15GM TOP SCH ×3 (10:08→18:30)
[2019-01-05] MEDS: THIAMINE HCL 100MG TABLET PO SCH (10:08)
[2019-01-05 17:41] LABS: HEMATOCRIT. 25.3 % (36.0-48.0); HEMOGLOBIN. 8.5 g/dL (12.0-16.0); MEAN CORPUSCULAR HEMOGLOBIN 31.1 pg (28.0-32.0); MEAN CORPUSCULAR VOLUME 92.4 fL (81.0-99.0); MEAN PLATELET VOLUME 10.6 fl (7.4-10.4); PLATELET 109 x1000/uL (130-400); RED BLOOD CELL COUNT 2.74 mill/uL (4.2-5.4); RED CELL DISTRIBUTION WIDTH 19.5 % (11.6-14.6)
[2019-01-05 21:15] LABS: PLATELET ESTIMATE DECREASED
[2019-01-05] MEDS ORDERED: IPRATROPIUM/ALBUTEROL 0.5-3(2.5)MG/3ML NEB HHN PRN (22:15)
[2019-01-06] VITALS (12 sets, daily range): BP systolic 121–153; BP diastolic 71–88
[2019-01-06] MEDS: METOCLOPRAMIDE HCL 10MG/2ML VIAL IV SCH ×4 (00:07→17:02)
[2019-01-06] MEDS ORDERED: GUAIFENESIN 200MG/10ML SUGAR FREE UDC PO PRN (01:30)
[2019-01-06 07:26] LABS: HEMATOCRIT. 25.8 % (36.0-48.0); HEMOGLOBIN. 8.5 g/dL (12.0-16.0); MEAN CORPUSCULAR HEMOGLOBIN 30.4 pg (28.0-32.0); MEAN CORPUSCULAR VOLUME 92.2 fL (81.0-99.0); RED BLOOD CELL COUNT 2.79 mill/uL (4.2-5.4); RED CELL DISTRIBUTION WIDTH 19.3 % (11.6-14.6)
[2019-01-06] MEDS: IPRATROPIUM/ALBUTEROL 0.5-3(2.5)MG/3ML NEB HHN SCH ×4 (07:38→20:45)
[2019-01-06] MEDS: ACETAMINOPHEN 325MG TABLET PO PRN (09:27)
[2019-01-06] MEDS: ASCORBIC ACID 500 MG TABLET GT SCH (09:28)
[2019-01-06] MEDS: ZINC SULFATE 220 MG ( 50 ) CAPSULE GT SCH (09:28)
[2019-01-06] MEDS: FLUCONAZOLE 100MG TABLET PO SCH (09:28)
[2019-01-06] MEDS: DOCUSATE SODIUM SUGAR FREE 100MG/10ML UDC NG SCH (09:28)
[2019-01-06] MEDS: MIDODRINE HCL 5MG TABLET PO SCH (09:29)
[2019-01-06] MEDS: NYSTATIN POWDER 15GM TOP SCH ×3 (09:30→17:02)
[2019-01-06 10:18] LABS: MEAN PLATELET VOLUME 10.8 fl (7.4-10.4); PLATELET 97 x1000/uL (130-400); PLATELET ESTIMATE DECREASED
[2019-01-06] MEDS: DOCUSATE SODIUM 250MG CAPSULE PO SCH (12:00)
[2019-01-07] VITALS (19 sets, daily range): BP systolic 115–186; BP diastolic 70–117
[2019-01-07] MEDS: METOCLOPRAMIDE HCL 10MG/2ML VIAL IV SCH ×4 (00:12→17:47)
[2019-01-07] MEDS: IPRATROPIUM/ALBUTEROL 0.5-3(2.5)MG/3ML NEB HHN SCH ×6 (01:44→20:13)
[2019-01-07 04:36] LABS: BG BASE EXCESS 0.9 mmol/L (-2.0-2.0); BG CARBOXYHEMOGLOBIN 1.2 % (0.5-1.5); BG DEOXYHEMOGLOBIN 5.2 % (0.0-5.0); BG FRACTION INSPIRED OXYGEN 80; BG HCO3 ACT 27.9 mmol/L (22.0-26.0); BG METHEMOGLOBIN 0.2 % (0.0-1.5); BG OXYGEN SATURATION 94.7 % (92.0-98.5); BG OXYHEMOGLOBIN 93.4 % (94.0-97.0); BG PCO2 57.5 mmHg (35.0-45.0); BG PEEP (cmH2O) 0 cmH2O; BG PH 7.304 (7.350-7.450); BG PO2 85.1 mmHg (75.0-100.0); BG SAMPLE SITE LEFT RADIAL; BG TIDAL VOLUME(mL) 500 mL; BG TOTAL HEMOGLOBIN 9.8 g/dL (12.0-18.0); BG VENT MODE VENT - A/C; BG VENT RATE 14 set
[2019-01-07 07:34] LABS: HEMATOCRIT. 28.4 % (36.0-48.0); HEMOGLOBIN. 9.4 g/dL (12.0-16.0); MEAN CORPUSCULAR HEMOGLOBIN 31.2 pg (28.0-32.0); MEAN CORPUSCULAR VOLUME 94.4 fL (81.0-99.0); RED BLOOD CELL COUNT 3.01 mill/uL (4.2-5.4); RED CELL DISTRIBUTION WIDTH 19.5 % (11.6-14.6)
[2019-01-07] MEDS: FLUCONAZOLE 100MG TABLET PO SCH (08:44)
[2019-01-07] MEDS: ZINC SULFATE 220 MG ( 50 ) CAPSULE GT SCH (08:44)
[2019-01-07] MEDS: NYSTATIN POWDER 15GM TOP SCH ×3 (08:45→17:47)
[2019-01-07] MEDS: ASCORBIC ACID 500 MG TABLET GT SCH (08:45)
[2019-01-07] MEDS: DOCUSATE SODIUM 250MG CAPSULE PO SCH (09:00)
[2019-01-07 13:55] LABS: PLATELET ESTIMATE DECREASED
[2019-01-07 13:57] LABS: PLATELET 95 x1000/uL (130-400)
[2019-01-08] VITALS (11 sets, daily range): BP systolic 118–155; BP diastolic 72–92
[2019-01-08] MEDS: METOCLOPRAMIDE HCL 10MG/2ML VIAL IV SCH ×4 (00:08→23:34)
[2019-01-08] MEDS: RACEPINEPHRINE 2.25% 0.5ML NEB VIAL HHN PRN ×3 (00:15→08:35)
[2019-01-08] MEDS: IPRATROPIUM/ALBUTEROL 0.5-3(2.5)MG/3ML NEB HHN SCH ×6 (00:15→20:14)
[2019-01-08] MEDS: ZINC SULFATE 220 MG ( 50 ) CAPSULE GT SCH (11:03)
[2019-01-08] MEDS: FLUCONAZOLE 100MG TABLET PO SCH (11:03)
[2019-01-08] MEDS: DOCUSATE SODIUM 250MG CAPSULE PO SCH (11:03)
[2019-01-08] MEDS: ASCORBIC ACID 500 MG TABLET GT SCH (11:04)
[2019-01-08] MEDS: ACETYLCYSTEINE 100MG/ML 10% VIAL 4ML INH SCH (16:00)
[2019-01-08 16:46] LABS: BG BASE EXCESS 7.6 mmol/L (-2.0-2.0); BG CARBOXYHEMOGLOBIN 0.5 % (0.5-1.5); BG DEOXYHEMOGLOBIN 0.3 % (0.0-5.0); BG FRACTION INSPIRED OXYGEN 75; BG HCO3 ACT 31.7 mmol/L (22.0-26.0); BG METHEMOGLOBIN 0.5 % (0.0-1.5); BG OXYGEN SATURATION 99.7 % (92.0-98.5); BG OXYHEMOGLOBIN 98.7 % (94.0-97.0); BG PCO2 42.4 mmHg (35.0-45.0); BG PH 7.491 (7.350-7.450); BG PO2 349.2 mmHg (75.0-100.0); BG PRESSURE SUPPORT 16; BG SAMPLE SITE RIGHT RADIAL; BG TIDAL VOLUME(mL) 500 mL; BG TOTAL HEMOGLOBIN 8.6 g/dL (12.0-18.0); BG VENT MODE VENT - SIMV; BG VENT RATE 6 set
[2019-01-08] MEDS: NYSTATIN POWDER 15GM TOP SCH (17:00)
[2019-01-09] VITALS (13 sets, daily range): BP systolic 128–158; BP diastolic 68–112
[2019-01-09] MEDS: ACETYLCYSTEINE 100MG/ML 10% VIAL 4ML INH SCH ×2 (00:01→07:50)
[2019-01-09] MEDS: IPRATROPIUM/ALBUTEROL 0.5-3(2.5)MG/3ML NEB HHN SCH ×6 (00:01→20:47)
[2019-01-09] MEDS: METOCLOPRAMIDE HCL 10MG/2ML VIAL IV SCH ×3 (06:20→17:05)
[2019-01-09 06:30] LABS: HEMATOCRIT. 24.5 % (36.0-48.0); HEMOGLOBIN. 8.1 g/dL (12.0-16.0); MEAN CORPUSCULAR VOLUME 93.4 fL (81.0-99.0); MEAN PLATELET VOLUME 11.1 fl (7.4-10.4); RED BLOOD CELL COUNT 2.62 mill/uL (4.2-5.4); RED CELL DISTRIBUTION WIDTH 19.1 % (11.6-14.6)
[2019-01-09] MEDS: NYSTATIN POWDER 15GM TOP SCH ×3 (08:57→17:10)
[2019-01-09] MEDS: ASCORBIC ACID 500 MG TABLET GT SCH (08:57)
[2019-01-09] MEDS: ZINC SULFATE 220 MG ( 50 ) CAPSULE GT SCH (08:57)
[2019-01-09] MEDS: DOCUSATE SODIUM 250MG CAPSULE PO SCH (08:57)
[2019-01-09 11:28] LABS: PLATELET ESTIMATE DECREASED
[2019-01-09 11:29] LABS: PLATELET 81 x1000/uL (130-400)
[2019-01-09] MEDS: RACEPINEPHRINE 2.25% 0.5ML NEB VIAL HHN PRN ×2 (12:21→20:47)
[2019-01-09 14:33] LABS: CLARITY URINE TURBID (CLEAR); COLOR URINE DARK YELLOW (YELLOW); KETONES URINE TRACE (NEGATIVE); LEUKOCYTE ESTERASE URINE 3+ (NEGATIVE); NITRITE URINE NEGATIVE (NEGATIVE); OCCULT BLOOD URINE 3+ (NEGATIVE); PH URINE 6.5 (4.5-8.0); PROTEIN URINE 2+ (NEGATIVE); SPECIFIC GRAVITY URINE 1.021 (1.005-1.030)
[2019-01-10] VITALS (13 sets, daily range): BP systolic 122–161; BP diastolic 65–95
[2019-01-10] MEDS: IPRATROPIUM/ALBUTEROL 0.5-3(2.5)MG/3ML NEB HHN SCH ×6 (00:11→21:02)
[2019-01-10] MEDS: ACETYLCYSTEINE 100MG/ML 10% VIAL 4ML INH SCH ×3 (00:12→16:12)
[2019-01-10] MEDS: METOCLOPRAMIDE HCL 10MG/2ML VIAL IV SCH ×4 (01:29→18:23)
[2019-01-10] MEDS: RACEPINEPHRINE 2.25% 0.5ML NEB VIAL HHN PRN (04:17)
[2019-01-10 06:27] LABS: HEMATOCRIT. 25.1 % (36.0-48.0); HEMOGLOBIN. 8.3 g/dL (12.0-16.0); MEAN CORPUSCULAR HEMOGLOBIN 30.8 pg (28.0-32.0); MEAN CORPUSCULAR VOLUME 93.1 fL (81.0-99.0); MEAN PLATELET VOLUME 11.1 fl (7.4-10.4); PLATELET 85 x1000/uL (130-400); RED BLOOD CELL COUNT 2.69 mill/uL (4.2-5.4)
[2019-01-10] MEDS: ASCORBIC ACID 500 MG TABLET GT SCH (09:46)
[2019-01-10] MEDS: DOCUSATE SODIUM 250MG CAPSULE PO SCH (09:46)
[2019-01-10] MEDS: NYSTATIN POWDER 15GM TOP SCH ×3 (09:46→17:55)
[2019-01-10] MEDS: ZINC SULFATE 220 MG ( 50 ) CAPSULE GT SCH (09:46)
[2019-01-10] MEDS: DOCUSATE SODIUM SUGAR FREE 100MG/10ML UDC PO SCH (09:57)
[2019-01-10 10:19] LABS: PLATELET ESTIMATE DECREASED
[2019-01-10] MEDS: GUAIFENESIN-DM 200MG-20MG/10ML UDC PO PRN (20:33)
[2019-01-10] MEDS: BUDESONIDE 0.5MG/2ML NEB HHN SCH (21:04)
[2019-01-11] VITALS (17 sets, daily range): BP systolic 123–161; BP diastolic 69–96
[2019-01-11] MEDS: METOCLOPRAMIDE HCL 10MG/2ML VIAL IV SCH ×5 (00:26→23:52)
[2019-01-11] MEDS: IPRATROPIUM/ALBUTEROL 0.5-3(2.5)MG/3ML NEB HHN SCH ×6 (00:57→20:29)
[2019-01-11] MEDS: ACETYLCYSTEINE 100MG/ML 10% VIAL 4ML INH SCH ×3 (00:58→15:16)
[2019-01-11 06:24] LABS: HEMATOCRIT. 24.2 % (36.0-48.0); HEMOGLOBIN. 8.2 g/dL (12.0-16.0); MEAN CORPUSCULAR HEMOGLOBIN 31.2 pg (28.0-32.0); MEAN CORPUSCULAR VOLUME 92.5 fL (81.0-99.0); MEAN PLATELET VOLUME 10.8 fl (7.4-10.4); PLATELET 73 x1000/uL (130-400); RED BLOOD CELL COUNT 2.62 mill/uL (4.2-5.4); RED CELL DISTRIBUTION WIDTH 19.4 % (11.6-14.6)
[2019-01-11] MEDS: BUDESONIDE 0.5MG/2ML NEB HHN SCH ×2 (07:49→20:28)
[2019-01-11] MEDS: ASCORBIC ACID 500 MG TABLET GT SCH (08:18)
[2019-01-11] MEDS: ZINC SULFATE 220 MG ( 50 ) CAPSULE GT SCH (08:18)
[2019-01-11] MEDS: NYSTATIN POWDER 15GM TOP SCH ×3 (08:19→17:08)
[2019-01-11] MEDS: DOCUSATE SODIUM SUGAR FREE 100MG/10ML UDC PO SCH (08:19)
[2019-01-11 14:25] LABS: PLATELET ESTIMATE DECREASED
[2019-01-11] MEDS: GUAIFENESIN-DM 200MG-20MG/10ML UDC PO PRN (21:50)
[2019-01-12] VITALS (16 sets, daily range): BP systolic 124–155; BP diastolic 69–96
[2019-01-12] MEDS: ACETYLCYSTEINE 100MG/ML 10% VIAL 4ML INH SCH ×2 (00:29→07:31)
[2019-01-12] MEDS: IPRATROPIUM/ALBUTEROL 0.5-3(2.5)MG/3ML NEB HHN SCH ×5 (00:29→20:48)
[2019-01-12] MEDS: METOCLOPRAMIDE HCL 10MG/2ML VIAL IV SCH ×2 (06:02→12:46)
[2019-01-12 06:36] LABS: HEMATOCRIT. 25.3 % (36.0-48.0); HEMOGLOBIN. 8.4 g/dL (12.0-16.0); MEAN CORPUSCULAR HEMOGLOBIN 30.9 pg (28.0-32.0); MEAN CORPUSCULAR VOLUME 93.5 fL (81.0-99.0); PLATELET 82 x1000/uL (130-400); RED CELL DISTRIBUTION WIDTH 19.2 % (11.6-14.6)
[2019-01-12] MEDS: BUDESONIDE 0.5MG/2ML NEB HHN SCH ×2 (07:31→20:48)
[2019-01-12 08:44] LABS: BG BASE EXCESS 1.3 mmol/L (-2.0-2.0); BG CARBOXYHEMOGLOBIN 1.2 % (0.5-1.5); BG DEOXYHEMOGLOBIN 2.1 % (0.0-5.0); BG FRACTION INSPIRED OXYGEN 35; BG HCO3 ACT 26.6 mmol/L (22.0-26.0); BG OXYGEN SATURATION 97.9 % (92.0-98.5); BG OXYHEMOGLOBIN 96.7 % (94.0-97.0); BG PCO2 44.7 mmHg (35.0-45.0); BG PH 7.392 (7.350-7.450); BG PO2 111.4 mmHg (75.0-100.0); BG PRESSURE SUPPORT 8; BG SAMPLE SITE RIGHT BRACHIAL; BG TOTAL HEMOGLOBIN 10.8 g/dL (12.0-18.0); BG VENT MODE VENT - CPAP
[2019-01-12] MEDS: DOCUSATE SODIUM SUGAR FREE 100MG/10ML UDC PO SCH (09:09)
[2019-01-12] MEDS: ZINC SULFATE 220 MG ( 50 ) CAPSULE GT SCH (09:10)
[2019-01-12] MEDS: NYSTATIN POWDER 15GM TOP SCH (09:10)
[2019-01-12] MEDS: ASCORBIC ACID 500 MG TABLET GT SCH (09:10)
[2019-01-12 10:54] LABS: PLATELET ESTIMATE DECREASED
[2019-01-12] MEDS ORDERED: HEPARIN SODIUM 1,000 UNIT/1ML VIAL IV NR (15:15)
[2019-01-13] VITALS (12 sets, daily range): BP systolic 127–156; BP diastolic 77–92
[2019-01-13] MEDS: ACETYLCYSTEINE 100MG/ML 10% VIAL 4ML INH SCH ×2 (00:38→08:30)
[2019-01-13] MEDS: IPRATROPIUM/ALBUTEROL 0.5-3(2.5)MG/3ML NEB HHN SCH ×6 (00:39→20:38)
[2019-01-13 06:33] LABS: HEMATOCRIT. 25.7 % (36.0-48.0); HEMOGLOBIN. 8.6 g/dL (12.0-16.0); MEAN CORPUSCULAR VOLUME 92.9 fL (81.0-99.0); MEAN PLATELET VOLUME 10.5 fl (7.4-10.4); PLATELET 72 x1000/uL (130-400); RED BLOOD CELL COUNT 2.77 mill/uL (4.2-5.4)
[2019-01-13] MEDS: BUDESONIDE 0.5MG/2ML NEB HHN SCH (08:30)
[2019-01-13] MEDS: ASCORBIC ACID 500 MG TABLET GT SCH (08:48)
[2019-01-13] MEDS: DOCUSATE SODIUM SUGAR FREE 100MG/10ML UDC PO SCH (08:48)
[2019-01-13] MEDS: ZINC SULFATE 220 MG ( 50 ) CAPSULE GT SCH (08:48)
[2019-01-13 11:51] LABS: PLATELET ESTIMATE DECREASED
[2019-01-13] MEDS: GUAIFENESIN-DM 200MG-20MG/10ML UDC PO PRN ×2 (17:47→22:56)
[2019-01-13] MEDS: METOCLOPRAMIDE HCL 10MG/2ML VIAL IV SCH (17:47)
[2019-01-14] VITALS (13 sets, daily range): BP systolic 118–166; BP diastolic 59–100
[2019-01-14] MEDS: METOCLOPRAMIDE HCL 10MG/2ML VIAL IV SCH ×4 (00:47→17:59)
[2019-01-14] MEDS: IPRATROPIUM/ALBUTEROL 0.5-3(2.5)MG/3ML NEB HHN SCH ×6 (00:59→19:55)
[2019-01-14] MEDS: BUDESONIDE 0.5MG/2ML NEB HHN SCH (00:59)
[2019-01-14] MEDS: ZINC SULFATE 220 MG ( 50 ) CAPSULE GT SCH (09:50)
[2019-01-14] MEDS: ASCORBIC ACID 500 MG TABLET GT SCH (09:50)
[2019-01-14 15:42] LABS: CLARITY URINE TURBID (CLEAR); COLOR URINE ORANGE (YELLOW); KETONES URINE TRACE (NEGATIVE); LEUKOCYTE ESTERASE URINE 3+ (NEGATIVE); NITRITE URINE NEGATIVE (NEGATIVE); OCCULT BLOOD URINE 3+ (NEGATIVE); PH URINE 6.5 (4.5-8.0); PROTEIN URINE 2+ (NEGATIVE); SPECIFIC GRAVITY URINE 1.017 (1.005-1.030); UROBILINOGEN URINE 0.2 E.U./dL (0.2-1.0)
[2019-01-14] MEDS: GUAIFENESIN-DM 200MG-20MG/10ML UDC PO PRN (21:24)
[2019-01-15] VITALS (48 sets, daily range): BP systolic 86–253; BP diastolic 44–111
[2019-01-15] MEDS: IPRATROPIUM/ALBUTEROL 0.5-3(2.5)MG/3ML NEB HHN SCH ×7 (00:27→20:32)
[2019-01-15] MEDS: METOCLOPRAMIDE HCL 10MG/2ML VIAL IV SCH ×5 (01:12→23:55)
[2019-01-15 06:48] LABS: BASOPHILS % 0.6 % (0.0-2.0); EOSINOPHILS % 1.4 % (0.0-5.0); HEMATOCRIT. 27.3 % (36.0-48.0); HEMOGLOBIN. 9.1 g/dL (12.0-16.0); LYMPHOCYTES % 16.1 % (20.0-50.0); MEAN CORPUSCULAR HEMOGLOBIN 31.6 pg (28.0-32.0); MEAN CORPUSCULAR VOLUME 94.6 fL (81.0-99.0); MONOCYTES % 13.9 % (2.0-8.0); RED BLOOD CELL COUNT 2.88 mill/uL (4.2-5.4); RED CELL DISTRIBUTION WIDTH 18.3 % (11.6-14.6)
[2019-01-15 08:05] LABS: MEAN PLATELET VOLUME 11.4 fl (7.4-10.4); PLATELET 66 x1000/uL (130-400)
[2019-01-15] MEDS: ASCORBIC ACID 500 MG TABLET GT SCH (09:00)
[2019-01-15] MEDS: ZINC SULFATE 220 MG ( 50 ) CAPSULE GT SCH (09:00)
[2019-01-15 09:56] LABS: BG BASE EXCESS -5.9 mmol/L (-2.0-2.0); BG CARBOXYHEMOGLOBIN 1.8 % (0.5-1.5); BG DEOXYHEMOGLOBIN 0.3 % (0.0-5.0); BG FRACTION INSPIRED OXYGEN 70; BG HCO3 ACT 20.5 mmol/L (22.0-26.0); BG METHEMOGLOBIN 0.3 % (0.0-1.5); BG OXYGEN SATURATION 99.7 % (92.0-98.5); BG OXYHEMOGLOBIN 97.6 % (94.0-97.0); BG PCO2 44.9 mmHg (35.0-45.0); BG PH 7.278 (7.350-7.450); BG PO2 333.7 mmHg (75.0-100.0); BG SAMPLE SITE RIGHT RADIAL; BG TIDAL VOLUME(mL) 500 mL; BG TOTAL HEMOGLOBIN 8.3 g/dL (12.0-18.0); BG VENT MODE VENT - A/C; BG VENT RATE 12 set
[2019-01-15] MEDS: ACETYLCYSTEINE 100MG/ML 10% VIAL 4ML INH SCH ×2 (10:25→16:25)
[2019-01-15] MEDS ORDERED: SODIUM CHLORIDE 0.9% 1,000 ML IV SCH (10:30)
[2019-01-15] MEDS ORDERED: NOREPINEPHRINE 8 MG in DEXT 5% WATER 242 ML IV PRN (10:30)
[2019-01-15] MEDS ORDERED: VANCOMYCIN 1500MG in DEXTROSE 5% WATER 250ML IV NR (11:00)
[2019-01-15] MEDS ORDERED: HYDRALAZINE 20MG/ML VIAL IV PRN (12:00)
[2019-01-15] MEDS: MORPHINE SULFATE 4 MG/ML CPJ (NOT FOR IM USE) IV PRN (12:11)
[2019-01-15] MEDS ORDERED: HYDRALAZINE 20MG/ML VIAL IV NR (12:15)
[2019-01-15] MEDS: PIPERACILLIN/TAZ 2.25G PREMIX 50 ML IV SCH ×2 (12:47→18:02)
[2019-01-15 15:37] LABS: CREATINE KINASE MB FRACTION 3.9 ng/mL (0.5-3.6)
[2019-01-15] MEDS: LORAZEPAM 2MG/ML CPJ IV PRN (18:02)
[2019-01-15 23:09] LABS: CREATINE KINASE MB FRACTION 3.1 ng/mL (0.5-3.6)
[2019-01-16] VITALS (91 sets, daily range): BP systolic 94–151; BP diastolic 42–90
[2019-01-16] MEDS: ACETYLCYSTEINE 100MG/ML 10% VIAL 4ML INH SCH ×3 (00:02→16:22)
[2019-01-16] MEDS: IPRATROPIUM/ALBUTEROL 0.5-3(2.5)MG/3ML NEB HHN SCH ×6 (00:02→20:28)
[2019-01-16] MEDS: PIPERACILLIN/TAZ 2.25G PREMIX 50 ML IV SCH ×3 (02:08→20:32)
[2019-01-16] MEDS: METOCLOPRAMIDE HCL 10MG/2ML VIAL IV SCH ×3 (05:49→17:05)
[2019-01-16 06:41] LABS: PHOSPHORUS 6.6 mg/dL (2.5-4.9)
[2019-01-16 06:48] LABS: CREATINE KINASE MB FRACTION 2.3 ng/mL (0.5-3.6)
[2019-01-16] MEDS: LANTHANUM CARBONATE 500MG CHEW TABLET PO SCH ×3 (07:00→17:04)
[2019-01-16 07:39] LABS: BG BASE EXCESS -0.7 mmol/L (-2.0-2.0); BG CARBOXYHEMOGLOBIN 1.4 % (0.5-1.5); BG DEOXYHEMOGLOBIN 4.6 % (0.0-5.0); BG FRACTION INSPIRED OXYGEN 50; BG METHEMOGLOBIN 0.6 % (0.0-1.5); BG OXYGEN SATURATION 95.3 % (92.0-98.5); BG OXYHEMOGLOBIN 93.4 % (94.0-97.0); BG PCO2 39.5 mmHg (35.0-45.0); BG PH 7.401 (7.350-7.450); BG PO2 81.5 mmHg (75.0-100.0); BG SAMPLE SITE RIGHT RADIAL; BG TIDAL VOLUME(mL) 500 mL; BG TOTAL HEMOGLOBIN 5.5 g/dL (12.0-18.0); BG VENT MODE VENT - A/C; BG VENT RATE 14 set
[2019-01-16 08:27] LABS: BASOPHILS % 1.1 % (0.0-2.0); EOSINOPHILS % 0.4 % (0.0-5.0); LYMPHOCYTES % 20.7 % (20.0-50.0); MEAN CORPUSCULAR HEMOGLOBIN 31.2 pg (28.0-32.0); MEAN CORPUSCULAR VOLUME 93.3 fL (81.0-99.0); MEAN PLATELET VOLUME 10.3 fl (7.4-10.4); MONOCYTES % 14.8 % (2.0-8.0); PLATELET 83 x1000/uL (130-400); RED BLOOD CELL COUNT 2.09 mill/uL (4.2-5.4); RED CELL DISTRIBUTION WIDTH 18.3 % (11.6-14.6)
[2019-01-16 08:46] LABS: HEMOGLOBIN. 6.5 g/dL (12.0-16.0)
[2019-01-16 08:47] LABS: HEMATOCRIT. 19.5 % (36.0-48.0)
[2019-01-16] MEDS: ZINC SULFATE 220 MG ( 50 ) CAPSULE GT SCH (09:00)
[2019-01-16] MEDS: ASCORBIC ACID 500 MG TABLET GT SCH (09:00)
[2019-01-16] MEDS: MORPHINE SULFATE 4 MG/ML CPJ (NOT FOR IM USE) IV PRN (14:14)
[2019-01-16] MEDS: LINEZOLID 600 MG PREMIX 300 ML IV SCH (14:14)
[2019-01-16 20:44] LABS: HEMATOCRIT 24.8 % (36.0-48.0); HEMOGLOBIN 8.2 g/dL (12.0-16.0)
[2019-01-17] VITALS (48 sets, daily range): BP systolic 96–144; BP diastolic 45–98
[2019-01-17] MEDS: IPRATROPIUM/ALBUTEROL 0.5-3(2.5)MG/3ML NEB HHN SCH ×6 (00:01→20:19)
[2019-01-17] MEDS: ACETYLCYSTEINE 100MG/ML 10% VIAL 4ML INH SCH ×3 (00:01→16:59)
[2019-01-17] MEDS: METOCLOPRAMIDE HCL 10MG/2ML VIAL IV SCH ×4 (00:14→17:45)
[2019-01-17] MEDS: LORAZEPAM 2MG/ML CPJ IV PRN (00:25)
[2019-01-17] MEDS: LINEZOLID 600 MG PREMIX 300 ML IV SCH ×2 (02:13→17:46)
[2019-01-17] MEDS: PIPERACILLIN/TAZ 2.25G PREMIX 50 ML IV SCH ×3 (02:14→21:37)
[2019-01-17 05:56] LABS: HEMATOCRIT. 22.7 % (36.0-48.0); HEMOGLOBIN. 7.6 g/dL (12.0-16.0); MEAN CORPUSCULAR HEMOGLOBIN 30.9 pg (28.0-32.0); MEAN CORPUSCULAR VOLUME 91.8 fL (81.0-99.0); PLATELET 80 x1000/uL (130-400); RED BLOOD CELL COUNT 2.47 mill/uL (4.2-5.4)
[2019-01-17] MEDS: LANTHANUM CARBONATE 500MG CHEW TABLET PO SCH ×3 (06:13→18:03)
[2019-01-17 07:20] LABS: PLATELET ESTIMATE DECREASED
[2019-01-17] MEDS: ZINC SULFATE 220 MG ( 50 ) CAPSULE GT SCH (08:37)
[2019-01-17] MEDS: ASCORBIC ACID 500 MG TABLET GT SCH (08:37)
[2019-01-17] MEDS ORDERED: HEPARIN SODIUM 1,000 UNIT/1ML VIAL IV SCH (09:30)
[2019-01-17] MEDS ORDERED: SODIUM CHLORIDE 3% FOR INH 4ML UD NEB INH SCH (12:00)
[2019-01-17] MEDS: FAMOTIDINE 20MG/2ML VIAL IV SCH (12:00)
[2019-01-18] VITALS (12 sets, daily range): BP systolic 93–137; BP diastolic 57–73
[2019-01-18] MEDS: ACETYLCYSTEINE 100MG/ML 10% VIAL 4ML INH SCH ×3 (00:15→17:01)
[2019-01-18] MEDS: IPRATROPIUM/ALBUTEROL 0.5-3(2.5)MG/3ML NEB HHN SCH ×6 (00:16→21:12)
[2019-01-18] MEDS: METOCLOPRAMIDE HCL 10MG/2ML VIAL IV SCH ×4 (00:22→18:06)
[2019-01-18] MEDS: PIPERACILLIN/TAZ 2.25G PREMIX 50 ML IV SCH ×3 (03:36→18:07)
[2019-01-18] MEDS: LINEZOLID 600 MG PREMIX 300 ML IV SCH ×2 (04:08→14:48)
[2019-01-18 07:04] LABS: HEMATOCRIT. 22.6 % (36.0-48.0); HEMOGLOBIN. 7.7 g/dL (12.0-16.0); MEAN CORPUSCULAR VOLUME 91.6 fL (81.0-99.0); RED BLOOD CELL COUNT 2.47 mill/uL (4.2-5.4); RED CELL DISTRIBUTION WIDTH 18.5 % (11.6-14.6)
[2019-01-18] MEDS: ZINC SULFATE 220 MG ( 50 ) CAPSULE GT SCH (09:04)
[2019-01-18] MEDS: LANTHANUM CARBONATE 500MG CHEW TABLET PO SCH ×3 (09:04→18:06)
[2019-01-18] MEDS: ASCORBIC ACID 500 MG TABLET GT SCH (09:04)
[2019-01-18 11:08] LABS: NUCLEATED RED BLOOD CELLS 2 /100 WBC
[2019-01-18 11:09] LABS: PLATELET ESTIMATE DECREASED
[2019-01-18 11:12] LABS: PLATELET 79 x1000/uL (130-400)
[2019-01-18] MEDS: FAMOTIDINE 20MG/2ML VIAL IV SCH (14:46)
[2019-01-18] MEDS: MORPHINE SULFATE 4 MG/ML CPJ (NOT FOR IM USE) IV PRN (22:17)
[2019-01-19] VITALS (12 sets, daily range): BP systolic 98–117; BP diastolic 58–70
[2019-01-19] MEDS: METOCLOPRAMIDE HCL 10MG/2ML VIAL IV SCH ×5 (00:33→23:33)
[2019-01-19] MEDS: ACETYLCYSTEINE 100MG/ML 10% VIAL 4ML INH SCH ×2 (00:54→08:50)
[2019-01-19] MEDS: IPRATROPIUM/ALBUTEROL 0.5-3(2.5)MG/3ML NEB HHN SCH ×6 (00:54→21:02)
[2019-01-19] MEDS: LINEZOLID 600 MG PREMIX 300 ML IV SCH ×2 (03:52→17:24)
[2019-01-19] MEDS: PIPERACILLIN/TAZ 2.25G PREMIX 50 ML IV SCH ×3 (03:52→22:53)
[2019-01-19 06:07] LABS: BASOPHILS % 0.8 % (0.0-2.0); HEMATOCRIT. 27.7 % (36.0-48.0); HEMOGLOBIN. 9.2 g/dL (12.0-16.0); LYMPHOCYTES % 18.7 % (20.0-50.0); MEAN CORPUSCULAR HEMOGLOBIN 30.7 pg (28.0-32.0); MEAN CORPUSCULAR VOLUME 92.3 fL (81.0-99.0); MEAN PLATELET VOLUME 10.5 fl (7.4-10.4); MONOCYTES % 7.6 % (2.0-8.0); NEUTROPHILS % 69.9 % (40.0-76.0); PLATELET 97 x1000/uL (130-400); RED CELL DISTRIBUTION WIDTH 18.1 % (11.6-14.6)
[2019-01-19] MEDS: ASCORBIC ACID 500 MG TABLET GT SCH (10:33)
[2019-01-19] MEDS: ZINC SULFATE 220 MG ( 50 ) CAPSULE GT SCH (10:33)
[2019-01-19] MEDS: LANTHANUM CARBONATE 500MG CHEW TABLET PO SCH ×3 (10:33→17:24)
[2019-01-19] MEDS: FAMOTIDINE 20MG/2ML VIAL IV SCH (12:20)
[2019-01-20] VITALS (12 sets, daily range): BP systolic 96–127; BP diastolic 46–82
[2019-01-20] MEDS: IPRATROPIUM/ALBUTEROL 0.5-3(2.5)MG/3ML NEB HHN SCH ×6 (01:15→21:18)
[2019-01-20] MEDS: ACETYLCYSTEINE 100MG/ML 10% VIAL 4ML INH SCH ×3 (01:15→16:24)
[2019-01-20] MEDS: LINEZOLID 600 MG PREMIX 300 ML IV SCH ×2 (01:33→14:25)
[2019-01-20] MEDS: PIPERACILLIN/TAZ 2.25G PREMIX 50 ML IV SCH ×3 (04:10→18:19)
[2019-01-20] MEDS: METOCLOPRAMIDE HCL 10MG/2ML VIAL IV SCH ×4 (05:29→23:55)
[2019-01-20 07:25] LABS: BASOPHILS % 0.6 % (0.0-2.0); HEMATOCRIT. 22.3 % (36.0-48.0); HEMOGLOBIN. 7.5 g/dL (12.0-16.0); LYMPHOCYTES % 16.9 % (20.0-50.0); MEAN CORPUSCULAR HEMOGLOBIN 31.4 pg (28.0-32.0); MEAN CORPUSCULAR VOLUME 92.9 fL (81.0-99.0); MEAN PLATELET VOLUME 9.8 fl (7.4-10.4); MONOCYTES % 8.2 % (2.0-8.0); NEUTROPHILS % 71.3 % (40.0-76.0); PLATELET 52 x1000/uL (130-400)
[2019-01-20] MEDS: ZINC SULFATE 220 MG ( 50 ) CAPSULE GT SCH (08:45)
[2019-01-20] MEDS: ASCORBIC ACID 500 MG TABLET GT SCH (08:46)
[2019-01-20] MEDS: LANTHANUM CARBONATE 500MG CHEW TABLET PO SCH ×3 (08:47→18:20)
[2019-01-20] MEDS: FAMOTIDINE 20MG/2ML VIAL IV SCH (11:59)
[2019-01-20 20:49] LABS: BASOPHILS % 0.3 % (0.0-2.0); EOSINOPHILS % 3.1 % (0.0-5.0); HEMATOCRIT. 29.3 % (36.0-48.0); HEMOGLOBIN. 9.4 g/dL (12.0-16.0); LYMPHOCYTES % 18.5 % (20.0-50.0); MEAN CORPUSCULAR HEMOGLOBIN 30.8 pg (28.0-32.0); MEAN CORPUSCULAR VOLUME 95.4 fL (81.0-99.0); MEAN PLATELET VOLUME 10.3 fl (7.4-10.4); MONOCYTES % 9.6 % (2.0-8.0); NEUTROPHILS % 68.5 % (40.0-76.0); PLATELET 53 x1000/uL (130-400); RED BLOOD CELL COUNT 3.07 mill/uL (4.2-5.4); RED CELL DISTRIBUTION WIDTH 18.4 % (11.6-14.6)
[2019-01-21] VITALS (15 sets, daily range): BP systolic 106–133; BP diastolic 57–81
[2019-01-21] MEDS: IPRATROPIUM/ALBUTEROL 0.5-3(2.5)MG/3ML NEB HHN SCH ×6 (00:44→20:06)
[2019-01-21] MEDS: LINEZOLID 600 MG PREMIX 300 ML IV SCH ×2 (01:58→13:23)
[2019-01-21] MEDS: PIPERACILLIN/TAZ 2.25G PREMIX 50 ML IV SCH ×3 (03:42→19:00)
[2019-01-21 05:56] LABS: BASOPHILS % 0.3 % (0.0-2.0); EOSINOPHILS % 3.4 % (0.0-5.0); HEMATOCRIT. 25.4 % (36.0-48.0); HEMOGLOBIN. 8.4 g/dL (12.0-16.0); LYMPHOCYTES % 11.4 % (20.0-50.0); MEAN CORPUSCULAR HEMOGLOBIN 30.9 pg (28.0-32.0); MEAN CORPUSCULAR VOLUME 93.1 fL (81.0-99.0); MEAN PLATELET VOLUME 9.6 fl (7.4-10.4); MONOCYTES % 7.4 % (2.0-8.0); NEUTROPHILS % 77.5 % (40.0-76.0); PLATELET 56 x1000/uL (130-400); RED BLOOD CELL COUNT 2.73 mill/uL (4.2-5.4); RED CELL DISTRIBUTION WIDTH 17.7 % (11.6-14.6)
[2019-01-21] MEDS: METOCLOPRAMIDE HCL 10MG/2ML VIAL IV SCH ×3 (06:01→19:01)
[2019-01-21] MEDS: LANTHANUM CARBONATE 500MG CHEW TABLET PO SCH ×3 (08:53→19:01)
[2019-01-21] MEDS: ASCORBIC ACID 500 MG TABLET GT SCH (09:54)
[2019-01-21] MEDS: ZINC SULFATE 220 MG ( 50 ) CAPSULE GT SCH (09:54)
[2019-01-21] MEDS: FAMOTIDINE 20MG/2ML VIAL IV SCH (11:36)
[2019-01-21] MEDS: DOCUSATE SODIUM SUGAR FREE 100MG/10ML UDC PO SCH (16:29)
[2019-01-22] VITALS (15 sets, daily range): BP systolic 102–129; BP diastolic 60–75
[2019-01-22] MEDS: IPRATROPIUM/ALBUTEROL 0.5-3(2.5)MG/3ML NEB HHN SCH ×6 (00:30→20:55)
[2019-01-22] MEDS: METOCLOPRAMIDE HCL 10MG/2ML VIAL IV SCH ×4 (00:45→17:17)
[2019-01-22] MEDS: PIPERACILLIN/TAZ 2.25G PREMIX 50 ML IV SCH ×3 (02:26→18:30)
[2019-01-22] MEDS: LINEZOLID 600 MG PREMIX 300 ML IV SCH ×2 (02:26→13:54)
[2019-01-22 06:55] LABS: BASOPHILS % 0.6 % (0.0-2.0); EOSINOPHILS % 3.7 % (0.0-5.0); HEMATOCRIT. 27.2 % (36.0-48.0); LYMPHOCYTES % 16.6 % (20.0-50.0); MEAN CORPUSCULAR HEMOGLOBIN 31.1 pg (28.0-32.0); MEAN CORPUSCULAR VOLUME 94.3 fL (81.0-99.0); MEAN PLATELET VOLUME 9.9 fl (7.4-10.4); NEUTROPHILS % 71.1 % (40.0-76.0); PLATELET 52 x1000/uL (130-400); RED BLOOD CELL COUNT 2.89 mill/uL (4.2-5.4); RED CELL DISTRIBUTION WIDTH 17.9 % (11.6-14.6)
[2019-01-22] MEDS: ASCORBIC ACID 500 MG TABLET GT SCH (08:17)
[2019-01-22] MEDS: LANTHANUM CARBONATE 500MG CHEW TABLET PO SCH ×3 (08:17→17:17)
[2019-01-22] MEDS: DOCUSATE SODIUM SUGAR FREE 100MG/10ML UDC PO SCH ×2 (08:17→17:17)
[2019-01-22] MEDS: ZINC SULFATE 220 MG ( 50 ) CAPSULE GT SCH (08:17)
[2019-01-22] MEDS: FAMOTIDINE 20MG/2ML VIAL IV SCH (13:53)
[2019-01-22] MEDS: MORPHINE SULFATE 4 MG/ML CPJ (NOT FOR IM USE) IV PRN (17:18)
[2019-01-22] MEDS: ACETYLCYSTEINE 100MG/ML 10% VIAL 4ML INH SCH (20:55)
[2019-01-23] VITALS (12 sets, daily range): BP systolic 109–141; BP diastolic 44–79
[2019-01-23] MEDS: IPRATROPIUM/ALBUTEROL 0.5-3(2.5)MG/3ML NEB HHN SCH ×6 (00:31→20:30)
[2019-01-23] MEDS: METOCLOPRAMIDE HCL 10MG/2ML VIAL IV SCH ×4 (00:43→17:03)
[2019-01-23 06:52] LABS: BASOPHILS % 0.4 % (0.0-2.0); HEMATOCRIT. 25.7 % (36.0-48.0); HEMOGLOBIN. 8.5 g/dL (12.0-16.0); LYMPHOCYTES % 10.6 % (20.0-50.0); MEAN CORPUSCULAR VOLUME 93.7 fL (81.0-99.0); MEAN PLATELET VOLUME 9.8 fl (7.4-10.4); MONOCYTES % 6.7 % (2.0-8.0); NEUTROPHILS % 79.3 % (40.0-76.0); RED BLOOD CELL COUNT 2.74 mill/uL (4.2-5.4); RED CELL DISTRIBUTION WIDTH 18.2 % (11.6-14.6)
[2019-01-23 08:38] LABS: PLATELET 43 x1000/uL (130-400)
[2019-01-23] MEDS: ZINC SULFATE 220 MG ( 50 ) CAPSULE GT SCH (08:45)
[2019-01-23] MEDS: DOCUSATE SODIUM SUGAR FREE 100MG/10ML UDC PO SCH ×2 (08:45→17:03)
[2019-01-23] MEDS: ASCORBIC ACID 500 MG TABLET GT SCH (08:45)
[2019-01-23] MEDS: ACETYLCYSTEINE 100MG/ML 10% VIAL 4ML INH SCH ×2 (09:00→16:00)
[2019-01-23] MEDS: LANTHANUM CARBONATE 500MG CHEW TABLET PO SCH ×3 (09:30→17:03)
[2019-01-23] MEDS: FAMOTIDINE 20MG/2ML VIAL IV SCH (12:31)
[2019-01-24] VITALS (11 sets, daily range): BP systolic 121–163; BP diastolic 72–90
[2019-01-24] MEDS: IPRATROPIUM/ALBUTEROL 0.5-3(2.5)MG/3ML NEB HHN SCH ×6 (00:07→19:58)
[2019-01-24] MEDS: METOCLOPRAMIDE HCL 10MG/2ML VIAL IV SCH ×4 (00:47→18:14)
[2019-01-24 07:09] LABS: BASOPHILS % 0.7 % (0.0-2.0); EOSINOPHILS % 2.8 % (0.0-5.0); HEMATOCRIT. 22.6 % (36.0-48.0); HEMOGLOBIN. 7.6 g/dL (12.0-16.0); LYMPHOCYTES % 17.7 % (20.0-50.0); MEAN CORPUSCULAR HEMOGLOBIN 31.2 pg (28.0-32.0); MEAN CORPUSCULAR VOLUME 93.1 fL (81.0-99.0); MEAN PLATELET VOLUME 9.6 fl (7.4-10.4); MONOCYTES % 9.6 % (2.0-8.0); NEUTROPHILS % 69.2 % (40.0-76.0); RED BLOOD CELL COUNT 2.43 mill/uL (4.2-5.4); RED CELL DISTRIBUTION WIDTH 17.9 % (11.6-14.6)
[2019-01-24 07:37] LABS: PLATELET 41 x1000/uL (130-400)
[2019-01-24] MEDS: PANTOPRAZOLE SODIUM 40 MG/VIAL IV SCH (08:27)
[2019-01-24] MEDS: DOCUSATE SODIUM SUGAR FREE 100MG/10ML UDC PO SCH ×2 (08:27→18:14)
[2019-01-24] MEDS: ASCORBIC ACID 500 MG TABLET GT SCH (08:27)
[2019-01-24] MEDS: LANTHANUM CARBONATE 500MG CHEW TABLET PO SCH ×3 (08:27→18:13)
[2019-01-24] MEDS: ZINC SULFATE 220 MG ( 50 ) CAPSULE GT SCH (08:27)
[2019-01-24 08:46] LABS: CLARITY URINE CLOUDY (CLEAR); COLOR URINE DARK YELLOW (YELLOW); KETONES URINE TRACE (NEGATIVE); LEUKOCYTE ESTERASE URINE 2+ (NEGATIVE); NITRITE URINE NEGATIVE (NEGATIVE); OCCULT BLOOD URINE 3+ (NEGATIVE); PROTEIN URINE 3+ (NEGATIVE)
[2019-01-24] MEDS: ACETYLCYSTEINE 100MG/ML 10% VIAL 4ML INH SCH ×2 (08:46→17:16)
[2019-01-24 10:55] LABS: PLATELET ESTIMATE MARKEDLY DECREASED
[2019-01-24] MEDS ORDERED: MAGNESIUM HYDROXIDE 400MG/5ML 30ML UDC PO PRN (15:00)
[2019-01-25] VITALS (12 sets, daily range): BP systolic 114–159; BP diastolic 48–101
[2019-01-25] MEDS: IPRATROPIUM/ALBUTEROL 0.5-3(2.5)MG/3ML NEB HHN SCH ×6 (00:25→20:38)
[2019-01-25] MEDS: METOCLOPRAMIDE HCL 10MG/2ML VIAL IV SCH ×5 (00:37→23:28)
[2019-01-25 06:28] LABS: BASOPHILS % 0.9 % (0.0-2.0); EOSINOPHILS % 2.9 % (0.0-5.0); HEMATOCRIT. 21.7 % (36.0-48.0); HEMOGLOBIN. 7.3 g/dL (12.0-16.0); LYMPHOCYTES % 18.8 % (20.0-50.0); MEAN CORPUSCULAR VOLUME 92.7 fL (81.0-99.0); MEAN PLATELET VOLUME 9.7 fl (7.4-10.4); MONOCYTES % 12.9 % (2.0-8.0); NEUTROPHILS % 64.5 % (40.0-76.0); RED BLOOD CELL COUNT 2.34 mill/uL (4.2-5.4); RED CELL DISTRIBUTION WIDTH 17.6 % (11.6-14.6)
[2019-01-25 07:58] LABS: PLATELET 38 x1000/uL (130-400)
[2019-01-25] MEDS: ACETYLCYSTEINE 100MG/ML 10% VIAL 4ML INH SCH ×2 (08:29→16:29)
[2019-01-25] MEDS: ASCORBIC ACID 500 MG TABLET GT SCH ×2 (09:00→11:37)
[2019-01-25] MEDS: ZINC SULFATE 220 MG ( 50 ) CAPSULE GT SCH ×2 (09:00→11:37)
[2019-01-25] MEDS: PANTOPRAZOLE SODIUM 40 MG/VIAL IV SCH (11:24)
[2019-01-25] MEDS: LANTHANUM CARBONATE 500MG CHEW TABLET PO SCH ×3 (11:24→17:36)
[2019-01-25] MEDS: DOCUSATE SODIUM SUGAR FREE 100MG/10ML UDC PO SCH ×2 (11:25→17:37)
[2019-01-25] MEDS: GUAIFENESIN-DM 200MG-20MG/10ML UDC PO PRN (14:51)
[2019-01-25 18:21] LABS: HEMOGLOBIN 7.1 g/dL (12.0-16.0); MEAN CORPUSCULAR HEMOGLOBIN 31.6 pg (28.0-32.0); MEAN CORPUSCULAR VOLUME 93.2 fL (81.0-99.0); RED BLOOD CELL COUNT 2.26 mill/uL (4.2-5.4); RED CELL DISTRIBUTION WIDTH 17.7 % (11.6-14.6)
[2019-01-25 18:40] LABS: PLATELET 38 x1000/uL (130-400)
[2019-01-26] VITALS (18 sets, daily range): BP systolic 127–157; BP diastolic 64–89
[2019-01-26] MEDS: IPRATROPIUM/ALBUTEROL 0.5-3(2.5)MG/3ML NEB HHN SCH ×6 (00:19→21:19)
[2019-01-26] MEDS: METOCLOPRAMIDE HCL 10MG/2ML VIAL IV SCH ×3 (05:09→19:34)
[2019-01-26] MEDS: ACETYLCYSTEINE 100MG/ML 10% VIAL 4ML INH SCH ×2 (07:58→15:56)
[2019-01-26 08:30] LABS: HEMATOCRIT. 21.9 % (36.0-48.0); HEMOGLOBIN. 7.5 g/dL (12.0-16.0); MEAN CORPUSCULAR HEMOGLOBIN 32.2 pg (28.0-32.0); MEAN CORPUSCULAR VOLUME 93.7 fL (81.0-99.0); MEAN PLATELET VOLUME 9.6 fl (7.4-10.4); RED BLOOD CELL COUNT 2.33 mill/uL (4.2-5.4); RED CELL DISTRIBUTION WIDTH 17.9 % (11.6-14.6)
[2019-01-26 08:41] LABS: PLATELET 34 x1000/uL (130-400)
[2019-01-26] MEDS: ASCORBIC ACID 500 MG TABLET GT SCH (08:52)
[2019-01-26] MEDS: LANTHANUM CARBONATE 500MG CHEW TABLET PO SCH ×3 (08:53→19:35)
[2019-01-26] MEDS: ZINC SULFATE 220 MG ( 50 ) CAPSULE GT SCH (08:54)
[2019-01-26] MEDS: DOCUSATE SODIUM SUGAR FREE 100MG/10ML UDC PO SCH ×2 (09:08→17:00)
[2019-01-26] MEDS: PANTOPRAZOLE SODIUM 40 MG/VIAL IV SCH (09:08)
[2019-01-26] MEDS: GUAIFENESIN-DM 200MG-20MG/10ML UDC PO PRN ×2 (16:35→20:48)
[2019-01-26] MEDS: EPOETIN ALFA 10000UNITS/ML VIAL SUBCUT SCH (20:48)
[2019-01-26] MEDS: MORPHINE SULFATE 4 MG/ML CPJ (NOT FOR IM USE) IV PRN (21:52)
[2019-01-27] VITALS (21 sets, daily range): BP systolic 114–158; BP diastolic 58–90
[2019-01-27] MEDS: IPRATROPIUM/ALBUTEROL 0.5-3(2.5)MG/3ML NEB HHN SCH ×6 (00:36→20:54)
[2019-01-27] MEDS: METOCLOPRAMIDE HCL 10MG/2ML VIAL IV SCH ×5 (05:33→23:45)
[2019-01-27 06:56] LABS: BASOPHILS % 0.4 % (0.0-2.0); EOSINOPHILS % 1.9 % (0.0-5.0); LYMPHOCYTES % 16.3 % (20.0-50.0); MEAN CORPUSCULAR HEMOGLOBIN 31.2 pg (28.0-32.0); MEAN CORPUSCULAR VOLUME 92.9 fL (81.0-99.0); MONOCYTES % 12.4 % (2.0-8.0); RED BLOOD CELL COUNT 2.08 mill/uL (4.2-5.4); RED CELL DISTRIBUTION WIDTH 17.7 % (11.6-14.6)
[2019-01-27 08:06] LABS: HEMATOCRIT. 19.3 % (36.0-48.0); HEMOGLOBIN. 6.5 g/dL (12.0-16.0)
[2019-01-27 08:07] LABS: PLATELET 41 x1000/uL (130-400)
[2019-01-27] MEDS: PANTOPRAZOLE SODIUM 40 MG/VIAL IV SCH (10:04)
[2019-01-27] MEDS: ZINC SULFATE 220 MG ( 50 ) CAPSULE GT SCH (10:04)
[2019-01-27] MEDS: ASCORBIC ACID 500 MG TABLET GT SCH (10:04)
[2019-01-27] MEDS: LANTHANUM CARBONATE 500MG CHEW TABLET PO SCH ×3 (10:05→18:00)
[2019-01-27] MEDS: DOCUSATE SODIUM SUGAR FREE 100MG/10ML UDC PO SCH ×2 (10:05→18:52)
[2019-01-27 10:12] LABS: HEMATOCRIT 20.1 % (36.0-48.0); HEMOGLOBIN 6.7 g/dL (12.0-16.0)
[2019-01-27 10:45] LABS: PLATELET ESTIMATE MARKEDLY DECREASED
[2019-01-27] MEDS: ACETYLCYSTEINE 100MG/ML 10% VIAL 4ML INH SCH (12:00)
[2019-01-28] VITALS (15 sets, daily range): BP systolic 109–154; BP diastolic 52–98
[2019-01-28] MEDS: IPRATROPIUM/ALBUTEROL 0.5-3(2.5)MG/3ML NEB HHN SCH ×6 (00:31→20:59)
[2019-01-28] MEDS: METOCLOPRAMIDE HCL 10MG/2ML VIAL IV SCH ×3 (05:42→18:24)
[2019-01-28 06:17] LABS: HEMATOCRIT. 22.6 % (36.0-48.0); HEMOGLOBIN. 7.8 g/dL (12.0-16.0); MEAN CORPUSCULAR HEMOGLOBIN 31.4 pg (28.0-32.0); MEAN CORPUSCULAR VOLUME 90.4 fL (81.0-99.0); MEAN PLATELET VOLUME 10.2 fl (7.4-10.4); PLATELET 52 x1000/uL (130-400); RED BLOOD CELL COUNT 2.49 mill/uL (4.2-5.4); RED CELL DISTRIBUTION WIDTH 18.1 % (11.6-14.6)
[2019-01-28] MEDS ORDERED: POTASSIUM CHLORIDE 20MEQ/PACKET PO NR (07:45)
[2019-01-28] MEDS: ASCORBIC ACID 500 MG TABLET GT SCH (08:35)
[2019-01-28] MEDS: LANTHANUM CARBONATE 500MG CHEW TABLET PO SCH ×3 (08:35→18:24)
[2019-01-28] MEDS: ZINC SULFATE 220 MG ( 50 ) CAPSULE GT SCH (08:35)
[2019-01-28] MEDS: DOCUSATE SODIUM SUGAR FREE 100MG/10ML UDC PO SCH ×2 (08:35→18:24)
[2019-01-28] MEDS: ACETYLCYSTEINE 100MG/ML 10% VIAL 4ML INH SCH ×2 (08:56→17:51)
[2019-01-28] MEDS: PANTOPRAZOLE SODIUM 40 MG/VIAL IV SCH (09:20)
[2019-01-28 11:17] LABS: PLATELET ESTIMATE MARKEDLY DECREASED
[2019-01-29] VITALS (12 sets, daily range): BP systolic 121–154; BP diastolic 62–86
[2019-01-29] MEDS: METOCLOPRAMIDE HCL 10MG/2ML VIAL IV SCH ×4 (00:29→17:33)
[2019-01-29] MEDS: ACETYLCYSTEINE 100MG/ML 10% VIAL 4ML INH SCH ×2 (02:10→20:59)
[2019-01-29] MEDS: IPRATROPIUM/ALBUTEROL 0.5-3(2.5)MG/3ML NEB HHN SCH ×4 (02:10→20:59)
[2019-01-29 06:39] LABS: BASOPHILS % 0.7 % (0.0-2.0); EOSINOPHILS % 4.1 % (0.0-5.0); HEMOGLOBIN. 7.5 g/dL (12.0-16.0); LYMPHOCYTES % 27.3 % (20.0-50.0); MEAN CORPUSCULAR HEMOGLOBIN 31.2 pg (28.0-32.0); MEAN PLATELET VOLUME 10.3 fl (7.4-10.4); MONOCYTES % 14.6 % (2.0-8.0); NEUTROPHILS % 53.3 % (40.0-76.0); PLATELET 71 x1000/uL (130-400); RED BLOOD CELL COUNT 2.42 mill/uL (4.2-5.4); RED CELL DISTRIBUTION WIDTH 18.3 % (11.6-14.6)
[2019-01-29 07:33] LABS: PHOSPHORUS 3.7 mg/dL (2.5-4.9)
[2019-01-29] MEDS: DOCUSATE SODIUM SUGAR FREE 100MG/10ML UDC PO SCH ×2 (09:00→17:00)
[2019-01-29] MEDS: ASCORBIC ACID 500 MG TABLET GT SCH (10:54)
[2019-01-29] MEDS: ZINC SULFATE 220 MG ( 50 ) CAPSULE GT SCH (10:54)
[2019-01-29] MEDS: LANTHANUM CARBONATE 500MG CHEW TABLET PO SCH ×2 (10:55→12:34)
[2019-01-29] MEDS: PANTOPRAZOLE SODIUM 40 MG/VIAL IV SCH (10:56)
[2019-01-29] MEDS ORDERED: POTASSIUM CHLORIDE 20MEQ/PACKET PO NR (11:15)
[2019-01-29] MEDS: EPOETIN ALFA 10000UNITS/ML VIAL SUBCUT SCH (22:37)
[2019-01-30] VITALS (12 sets, daily range): BP systolic 119–144; BP diastolic 67–82
[2019-01-30] MEDS: METOCLOPRAMIDE HCL 10MG/2ML VIAL IV SCH ×3 (00:02→12:00)
[2019-01-30] MEDS: IPRATROPIUM/ALBUTEROL 0.5-3(2.5)MG/3ML NEB HHN SCH ×4 (00:36→20:30)
[2019-01-30 07:32] LABS: BASOPHILS % 0.8 % (0.0-2.0); EOSINOPHILS % 5.5 % (0.0-5.0); HEMATOCRIT. 23.2 % (36.0-48.0); HEMOGLOBIN. 7.8 g/dL (12.0-16.0); LYMPHOCYTES % 28.1 % (20.0-50.0); MEAN CORPUSCULAR HEMOGLOBIN 30.9 pg (28.0-32.0); MEAN CORPUSCULAR VOLUME 91.7 fL (81.0-99.0); MONOCYTES % 13.6 % (2.0-8.0); RED BLOOD CELL COUNT 2.52 mill/uL (4.2-5.4); RED CELL DISTRIBUTION WIDTH 18.9 % (11.6-14.6)
[2019-01-30 08:03] LABS: PHOSPHORUS 4.6 mg/dL (2.5-4.9)
[2019-01-30] MEDS ORDERED: POTASSIUM CHLORIDE 20MEQ/PACKET PO NR (09:00)
[2019-01-30] MEDS: DOCUSATE SODIUM SUGAR FREE 100MG/10ML UDC PO SCH ×2 (09:00→16:57)
[2019-01-30] MEDS: ACETYLCYSTEINE 100MG/ML 10% VIAL 4ML INH SCH (09:08)
[2019-01-30] MEDS: PANTOPRAZOLE SODIUM 40 MG/VIAL IV SCH (10:04)
[2019-01-30] MEDS: ZINC SULFATE 220 MG ( 50 ) CAPSULE GT SCH (10:05)
[2019-01-30] MEDS: LANTHANUM CARBONATE 500MG CHEW TABLET PO SCH ×3 (10:05→18:14)
[2019-01-30] MEDS: ASCORBIC ACID 500 MG TABLET GT SCH (10:06)
[2019-01-30 11:36] LABS: PLATELET 96 x1000/uL (130-400)
[2019-01-30] MEDS: DIPHENHYDRAMINE 12.5MG/5ML UDC PO SCH ×2 (13:50→22:18)
[2019-01-31] VITALS (8 sets, daily range): BP systolic 125–153; BP diastolic 71–89
[2019-01-31] MEDS: ACETYLCYSTEINE 100MG/ML 10% VIAL 4ML INH SCH ×4 (00:01→20:12)
[2019-01-31] MEDS: IPRATROPIUM/ALBUTEROL 0.5-3(2.5)MG/3ML NEB HHN SCH ×6 (04:17→20:12)
[2019-01-31] MEDS: METOCLOPRAMIDE HCL 10MG/2ML VIAL IV SCH ×4 (05:50→17:53)
[2019-01-31 06:34] LABS: EOSINOPHILS % 4.7 % (0.0-5.0); HEMATOCRIT. 22.8 % (36.0-48.0); HEMOGLOBIN. 7.7 g/dL (12.0-16.0); LYMPHOCYTES % 36.8 % (20.0-50.0); MEAN CORPUSCULAR HEMOGLOBIN 31.2 pg (28.0-32.0); MEAN CORPUSCULAR VOLUME 91.8 fL (81.0-99.0); MONOCYTES % 14.4 % (2.0-8.0); NEUTROPHILS % 43.1 % (40.0-76.0); PLATELET 99 x1000/uL (130-400); RED BLOOD CELL COUNT 2.48 mill/uL (4.2-5.4); RED CELL DISTRIBUTION WIDTH 19.2 % (11.6-14.6)
[2019-01-31] MEDS: LANTHANUM CARBONATE 500MG CHEW TABLET PO SCH ×3 (08:32→17:53)
[2019-01-31] MEDS: PANTOPRAZOLE SODIUM 40 MG/VIAL IV SCH (08:32)
[2019-01-31] MEDS: DIPHENHYDRAMINE 12.5MG/5ML UDC PO SCH ×2 (08:32→22:05)
[2019-01-31] MEDS: ASCORBIC ACID 500 MG TABLET GT SCH (08:32)
[2019-01-31] MEDS: ZINC SULFATE 220 MG ( 50 ) CAPSULE GT SCH (08:32)
[2019-01-31] MEDS: DOCUSATE SODIUM SUGAR FREE 100MG/10ML UDC PO SCH ×2 (08:33→17:00)
[2019-01-31] MEDS: EPOETIN ALFA 10000UNITS/ML VIAL SUBCUT SCH (22:06)
[2019-02-01] VITALS (9 sets, daily range): BP systolic 124–142; BP diastolic 68–84
[2019-02-01] MEDS: IPRATROPIUM/ALBUTEROL 0.5-3(2.5)MG/3ML NEB HHN SCH ×6 (00:08→20:41)
[2019-02-01] MEDS: METOCLOPRAMIDE HCL 10MG/2ML VIAL IV SCH ×4 (01:00→18:06)
[2019-02-01 06:51] LABS: BASOPHILS % 0.9 % (0.0-2.0); HEMATOCRIT. 23.5 % (36.0-48.0); HEMOGLOBIN. 7.9 g/dL (12.0-16.0); LYMPHOCYTES % 28.1 % (20.0-50.0); MEAN CORPUSCULAR HEMOGLOBIN 30.8 pg (28.0-32.0); MEAN CORPUSCULAR VOLUME 92.1 fL (81.0-99.0); MEAN PLATELET VOLUME 10.6 fl (7.4-10.4); MONOCYTES % 10.2 % (2.0-8.0); NEUTROPHILS % 54.8 % (40.0-76.0); PLATELET 109 x1000/uL (130-400); RED BLOOD CELL COUNT 2.56 mill/uL (4.2-5.4); RED CELL DISTRIBUTION WIDTH 19.4 % (11.6-14.6)
[2019-02-01] MEDS: DIPHENHYDRAMINE 12.5MG/5ML UDC PO SCH ×2 (08:07→22:11)
[2019-02-01] MEDS: ASCORBIC ACID 500 MG TABLET GT SCH (08:08)
[2019-02-01] MEDS: ZINC SULFATE 220 MG ( 50 ) CAPSULE GT SCH (08:08)
[2019-02-01] MEDS: LANTHANUM CARBONATE 500MG CHEW TABLET PO SCH ×3 (08:08→18:07)
[2019-02-01] MEDS: PANTOPRAZOLE SODIUM 40 MG/VIAL IV SCH (08:08)
[2019-02-01] MEDS: DOCUSATE SODIUM SUGAR FREE 100MG/10ML UDC PO SCH ×3 (08:08→22:11)
[2019-02-01] MEDS: ACETYLCYSTEINE 100MG/ML 10% VIAL 4ML INH SCH ×2 (08:38→16:46)
[2019-02-01] MEDS: RACEPINEPHRINE 2.25% 0.5ML NEB VIAL HHN PRN (12:36)
[2019-02-01] MEDS: FUROSEMIDE 40MG TABLET PO SCH (12:45)
[2019-02-02] VITALS (10 sets, daily range): BP systolic 121–158; BP diastolic 50–110
[2019-02-02] MEDS: METOCLOPRAMIDE HCL 10MG/2ML VIAL IV SCH ×3 (00:19→12:00)
[2019-02-02] MEDS: IPRATROPIUM/ALBUTEROL 0.5-3(2.5)MG/3ML NEB HHN SCH ×4 (05:03→15:44)
[2019-02-02 07:11] LABS: BASOPHILS % 0.8 % (0.0-2.0); EOSINOPHILS % 5.3 % (0.0-5.0); HEMATOCRIT. 25.3 % (36.0-48.0); HEMOGLOBIN. 8.5 g/dL (12.0-16.0); LYMPHOCYTES % 31.5 % (20.0-50.0); MEAN CORPUSCULAR HEMOGLOBIN 31.2 pg (28.0-32.0); MEAN PLATELET VOLUME 10.1 fl (7.4-10.4); MONOCYTES % 10.8 % (2.0-8.0); NEUTROPHILS % 51.6 % (40.0-76.0); PLATELET 115 x1000/uL (130-400); RED BLOOD CELL COUNT 2.72 mill/uL (4.2-5.4); RED CELL DISTRIBUTION WIDTH 19.3 % (11.6-14.6)
[2019-02-02] MEDS: ACETYLCYSTEINE 100MG/ML 10% VIAL 4ML INH SCH ×2 (08:40→15:44)
[2019-02-02] MEDS: DOCUSATE SODIUM SUGAR FREE 100MG/10ML UDC PO SCH ×2 (09:00→16:57)
[2019-02-02] MEDS: ZINC SULFATE 220 MG ( 50 ) CAPSULE GT SCH (10:25)
[2019-02-02] MEDS: ASCORBIC ACID 500 MG TABLET GT SCH (10:26)
[2019-02-02] MEDS: DIPHENHYDRAMINE 12.5MG/5ML UDC PO SCH (10:26)
[2019-02-02] MEDS: PANTOPRAZOLE SODIUM 40 MG/VIAL IV SCH (10:26)
[2019-02-02] MEDS: FUROSEMIDE 40MG TABLET PO SCH (10:26)
[2019-02-02] MEDS: LANTHANUM CARBONATE 500MG CHEW TABLET PO SCH ×3 (10:29→18:53)
[2019-02-02] MEDS: RACEPINEPHRINE 2.25% 0.5ML NEB VIAL HHN PRN (13:16)
== END 2019-02-02 19:30 | disposition short-term general hospital (02) | DRG 4 ==
LOC: ER 01:40 → CVICU 05:21 → EDBEDREQSVC 05:25 → EDBEDREQTM 05:25 → EDBEDREQ 05:25 → ENRESERV 08:55 → CANRESERV 08:55 → EDBEDREQSVC 09:32 → ENRESERV 10:38 → 5EST 12-24 20:27 → MICUSO 01-15 11:27 → 5EST 01-17 13:47
PROVIDERS: ADMIT Internal Medicine; ATTEND Internal Medicine
PROC: 5A1955Z Respiratory Ventilation, Greater than 96 Consecutive Hours (ICD-10-PCS; principal; 2018-12-08)
PROC: 0BH17EZ Insertion of Endotracheal Airway into Trachea, Via Natural or Artificial Opening (ICD-10-PCS; 2018-12-08)
PROC: 30233K1 Transfusion of Nonautologous Frozen Plasma into Peripheral Vein, Percutaneous Approach (ICD-10-PCS; 2018-12-08)
PROC: 30233N1 Transfusion of Nonautologous Red Blood Cells into Peripheral Vein, Percutaneous Approach (ICD-10-PCS; 2018-12-08)
PROC: 05HY33Z Insertion of Infusion Device into Upper Vein, Percutaneous Approach (ICD-10-PCS; 2018-12-12)
PROC: B54MZZA Ultrasonography of Right Upper Extremity Veins, Guidance (ICD-10-PCS; 2018-12-12)
PROC: 5A1D70Z Performance of Urinary Filtration, Intermittent, Less than 6 Hours Per Day (ICD-10-PCS; 2018-12-13)
PROC: 02H633Z Insertion of Infusion Device into Right Atrium, Percutaneous Approach (ICD-10-PCS; 2018-12-13)
PROC: B244ZZZ Ultrasonography of Right Heart (ICD-10-PCS; 2018-12-13)
PROC: 5A1D70Z Performance of Urinary Filtration, Intermittent, Less than 6 Hours Per Day (ICD-10-PCS; 2018-12-14)
PROC: 5A1D70Z Performance of Urinary Filtration, Intermittent, Less than 6 Hours Per Day (ICD-10-PCS; 2018-12-16)
PROC: 5A1D70Z Performance of Urinary Filtration, Intermittent, Less than 6 Hours Per Day (ICD-10-PCS; 2018-12-18)
PROC: 0B110F4 Bypass Trachea to Cutaneous with Tracheostomy Device, Open Approach (ICD-10-PCS; 2018-12-19)
PROC: 0GBJ0ZZ Excision of Thyroid Gland Isthmus, Open Approach (ICD-10-PCS; 2018-12-19)
PROC: 5A1D70Z Performance of Urinary Filtration, Intermittent, Less than 6 Hours Per Day (ICD-10-PCS; 2018-12-20)
PROC: 5A1D70Z Performance of Urinary Filtration, Intermittent, Less than 6 Hours Per Day (ICD-10-PCS; 2018-12-22)
PROC: 5A1D70Z Performance of Urinary Filtration, Intermittent, Less than 6 Hours Per Day (ICD-10-PCS; 2018-12-25)
PROC: 0DH63UZ Insertion of Feeding Device into Stomach, Percutaneous Approach (ICD-10-PCS; 2018-12-25)
PROC: 5A1D70Z Performance of Urinary Filtration, Intermittent, Less than 6 Hours Per Day (ICD-10-PCS; 2018-12-27)
PROC: 5A1D70Z Performance of Urinary Filtration, Intermittent, Less than 6 Hours Per Day (ICD-10-PCS; 2018-12-29)
PROC: 5A1D70Z Performance of Urinary Filtration, Intermittent, Less than 6 Hours Per Day (ICD-10-PCS; 2019-01-01)
PROC: 5A1D70Z Performance of Urinary Filtration, Intermittent, Less than 6 Hours Per Day (ICD-10-PCS; 2019-01-03)
PROC: 5A1D70Z Performance of Urinary Filtration, Intermittent, Less than 6 Hours Per Day (ICD-10-PCS; 2019-01-05)
PROC: 5A1D70Z Performance of Urinary Filtration, Intermittent, Less than 6 Hours Per Day (ICD-10-PCS; 2019-01-06)
PROC: 5A1D70Z Performance of Urinary Filtration, Intermittent, Less than 6 Hours Per Day (ICD-10-PCS; 2019-01-10)
PROC: 5A1D70Z Performance of Urinary Filtration, Intermittent, Less than 6 Hours Per Day (ICD-10-PCS; 2019-01-12)
PROC: 5A1D70Z Performance of Urinary Filtration, Intermittent, Less than 6 Hours Per Day (ICD-10-PCS; 2019-01-16)
PROC: 5A1D70Z Performance of Urinary Filtration, Intermittent, Less than 6 Hours Per Day (ICD-10-PCS; 2019-01-17)
PROC: 5A1D70Z Performance of Urinary Filtration, Intermittent, Less than 6 Hours Per Day (ICD-10-PCS; 2019-01-19)
PROC: 5A1D70Z Performance of Urinary Filtration, Intermittent, Less than 6 Hours Per Day (ICD-10-PCS; 2019-01-22)
PROC: 5A1D70Z Performance of Urinary Filtration, Intermittent, Less than 6 Hours Per Day (ICD-10-PCS; 2019-01-24)
PROC: 02HV33Z Insertion of Infusion Device into Superior Vena Cava, Percutaneous Approach (ICD-10-PCS; 2019-01-24)
PROC: B5181ZA Fluoroscopy of Superior Vena Cava using Low Osmolar Contrast, Guidance (ICD-10-PCS; 2019-01-24)
PROC: B548ZZA Ultrasonography of Superior Vena Cava, Guidance (ICD-10-PCS; 2019-01-24)
PROC: 5A1D70Z Performance of Urinary Filtration, Intermittent, Less than 6 Hours Per Day (ICD-10-PCS; 2019-01-25)
PROC: 5A1D70Z Performance of Urinary Filtration, Intermittent, Less than 6 Hours Per Day (ICD-10-PCS; 2019-01-27)
DX: A40.8 Other streptococcal sepsis (principal); N17.0 Acute kidney failure with tubular necrosis; I46.9 Cardiac arrest, cause unspecified; R65.21 Severe sepsis with septic shock; E43 Unspecified severe protein-calorie malnutrition; J18.1 Lobar pneumonia, unspecified organism; J96.20 Acute and chronic respiratory failure, unspecified whether with hypoxia or hypercapnia; G92 Toxic encephalopathy; D69.59 Other secondary thrombocytopenia; E87.2 Acidosis; K70.30 Alcoholic cirrhosis of liver without ascites; N39.0 Urinary tract infection, site not specified; B95.2 Enterococcus as the cause of diseases classified elsewhere; E78.1 Pure hyperglyceridemia; E83.39 Other disorders of phosphorus metabolism; D75.89 Other specified diseases of blood and blood-forming organs; D25.9 Leiomyoma of uterus, unspecified; D50.0 Iron deficiency anemia secondary to blood loss (chronic); D63.1 Anemia in chronic kidney disease; E87.1 Hypo-osmolality and hyponatremia; F10.10 Alcohol abuse, uncomplicated; G31.9 Degenerative disease of nervous system, unspecified; I13.11 Hypertensive heart and chronic kidney disease without heart failure, with stage 5 chronic kidney disease, or end stage renal disease; K56.7 Ileus, unspecified; K70.40 Alcoholic hepatic failure without coma; M54.30 Sciatica, unspecified side; N18.6 End stage renal disease; R13.10 Dysphagia, unspecified; R50.82 Postprocedural fever; Z16.21 Resistance to vancomycin; K80.20 Calculus of gallbladder without cholecystitis without obstruction; K82.8 Other specified diseases of gallbladder; K75.9 Inflammatory liver disease, unspecified; T17.990A Other foreign object in respiratory tract, part unspecified in causing asphyxiation, initial encounter; X58.XXXA Exposure to other specified factors, initial encounter; Y92.230 Patient room in hospital as the place of occurrence of the external cause; K76.6 Portal hypertension; K31.89 Other diseases of stomach and duodenum; L89.899 Pressure ulcer of other site, unspecified stage; L89.619 Pressure ulcer of right heel, unspecified stage; L89.629 Pressure ulcer of left heel, unspecified stage; Z78.1 Physical restraint status; Z85.00 Personal history of malignant neoplasm of unspecified digestive organ; Z99.11 Dependence on respirator [ventilator] status; Z68.33 Body mass index [BMI] 33.0-33.9, adult; Z87.891 Personal history of nicotine dependence; Z93.1 Gastrostomy status; Z99.2 Dependence on renal dialysis; Y93.89 Activity, other specified; Y99.8 Other external cause status
CPT/HCPCS: 31500; 36415; 36556; 36569; 36600; 70551; 71045; 71250; 74018; 74176; 74181; 76700; 76705; 76770; 76937; 78227; 78278; 80048; 80061; 80076; 80202; 80305; 80307; 80329; 82105; 82140; 82248; 82375; 82378; 82533; 82550; 82553; 82607; 82728; 82746; 82784; 82805; 82962; 83036; 83540; 83550; 83605; 83735; 83880; 84100; 84134; 84145; 84478; 84484; 85007; 85014; 85018; 85027; 85362; 85379; 85384; 86334; 86705; 86706; 86709; 86803; 86850; 86900; 86920; 86927; 87070; 87077; 87106; 87186; 87340; 87389; 87804; 93005; 93306; 93970; 94002; 94003; 94640; 96361; 96365; 96375; 97110; 97116; 97163; 97164; 97166; 97168; 97530; 97535; 99291; A6261; A9537; A9560; C1725; C1752; C9113; G0482; J0360; J0690; J0692; J0696; J0885; J1450; J1644; J1940; J2020; J2060; J2250; J2270; J2405; J2543; J2704; J2765; J3010; J3370; J3430; J3490; J7030; J7040; J7042; J7050; J7060; J7070; J7608; J7620; J7626; P9016; P9017; Q0163; Q9963; A4315